=== PATIENT | female | born 1935 | race Caucasian/White ===

== ENCOUNTER 2018-01-11 07:33 | Emergency (ER) | payer OTHER, SELFPAY ==
[2018-01-11 09:26] LABS: Hematocrit 40.3 % (36.0-45.0); MCH 29.8 pg (27.0-35.0); MCV 88.7 fL (80-100); MPV 9.4 fL (7.6-11.3); RBC Red Blood Cell Count 4.54 M/uL (3.86-4.86)
[2018-01-11 09:32] LABS: Potassium 3.7 mEq/L (3.6-5.0)
[2018-01-11 09:35] LABS: Albumin 4.4 g/dL (3.2-5.5); Bilirubin Total 0.5 mg/dL (0.3-1.2); Protein, Total 7.5 g/dL (6.0-8.3)
--- NOTE | 2018-01-11 09:48 | EDPHYS ---
Physician Documentation [facility] Name: Amara Shipley Age: 82 yrs Sex: Female : 1935 Arrival Date: 01/11/2018 Time: 07:35 Bed 20 Private MD: ED Physician Omari Mac HPI: 01/11 08:57 This 82 yrs old Female presents to ER via Ambulatory with complaints of saira Insect Bite. 08:57 The patient presents to the emergency department with psychosis, has experienced visual saira hallucinations, seeing bugs. Onset: The symptoms/episode began/occurred 6 month(s) ago. Past psychiatric history: Prior diagnosis: no previous psychiatric diagnosis known. no hx, hx oa and ra. Associated signs and symptoms: Pertinent positives; delusions. Severity of symptoms: At their worst the symptoms were mild in the emergency department the symptoms are unchanged. The patient has experienced similar episodes in the past, a few times. Historical: - Allergies: 08:24 Celebrex; em 08:24 Codeine; em 08:24 Demerol; em - PMHx: 08:24 High Cholesterol; Hypertension; em - PSHx: 08:24 D \T\ C; Cholecystectomy; Hysterectomy; em - Immunization history:: Adult Immunizations up to date. - Social history:: Smoking status: Patient/guardian denies using tobacco. - Family history:: not pertinent. ROS: 08:57 Constitutional: Negative for fever, chills, and weight loss, Eyes: Negative for injury, saira pain, redness, and discharge, ENT: Negative for injury, pain, and discharge, Neck: Negative for injury, pain, and swelling, Cardiovascular: Negative for chest pain, palpitations, and edema, Respiratory: Negative for shortness of breath, cough, wheezing, and pleuritic chest pain, Abdomen/GI: Negative for abdominal pain, nausea, vomiting, diarrhea, and constipation, Back: Negative for injury and pain, : Negative for injury, bleeding, discharge, and swelling, MS/Extremity: Negative for injury and deformity, Neuro: Negative for headache, weakness, numbness, tingling, and seizure, Allergy/Immunology: Negative for hives, rash, and allergies, Endocrine: Negative for neck swelling, polydipsia, polyuria, polyphagia, and marked weight changes, Hematologic/Lymphatic: Negative for swollen nodes, abnormal bleeding, and unusual bruising. 08:57 Skin: Positive for small excoriated areas on back, upper. Exam: 08:57 Constitutional: This is a well developed, well nourished patient who is awake, alert, saira and in no acute distress. Head/Face: Normocephalic, atraumatic. Eyes: Pupils equal round and reactive to light, extra-ocular motions intact. Lids and lashes normal. Conjunctiva and sclera are non-icteric and not injected. Cornea within normal limits. Periorbital areas with no swelling, redness, or edema. ENT: Nares patent. No nasal discharge, no septal abnormalities noted. Tympanic membranes are normal and external auditory canals are clear. Oropharynx with no redness, swelling, or masses, exudates, or evidence of obstruction, uvula midline. Mucous membranes moist. Neck: Trachea midline, no thyromegaly or masses palpated, and no cervical lymphadenopathy. Supple, full range of motion without nuchal rigidity, or vertebral point tenderness. No Meningismus. Chest/axilla: Normal chest wall appearance and motion. Nontender with no deformity. No lesions are appreciated. Cardiovascular: Regular rate and rhythm with a normal S1 and S2. No gallops, murmurs, or rubs. Normal PMI, no JVD. No pulse deficits. Respiratory: Lungs have equal breath sounds bilaterally, clear to auscultation and percussion. No rales, rhonchi or wheezes noted. No increased work of breathing, no retractions or nasal flaring. Abdomen/GI: Soft, non-tender, with normal bowel sounds. No distension or tympany. No guarding or rebound. No evidence of tenderness throughout. Back: No spinal tenderness. No costovertebral tenderness. Full range of motion. Female : Normal external genitalia. Skin: Warm, dry with normal turgor. Normal color with no rashes, no lesions, and no evidence of cellulitis. MS/ Extremity: Pulses equal, no cyanosis. Neurovascular intact. Full, normal range of motion. Neuro: Awake and alert, GCS 15, oriented to person, place, time, and situation. Cranial nerves II-XII grossly intact. Motor strength 5/5 in all extremities. Sensory grossly intact. Cerebellar exam normal. Normal gait. Psych: Awake, alert, with orientation to person, place and time. Behavior, mood, and affect are within normal limits. 08:57 Psych: Behavior/mood is pleasant, cooperative, Affect is calm, Oriented to person, place, time, Patient has no thoughts/intents to harm self or others. Judgement / Insight is normal. Memory is normal. Delusions/hallucinations are present and described as see bugs on skin. Vital Signs: 08:22 BP 202 / 106; Pulse 102; Resp 18; Temp 98.7; Pulse Ox 100% on R/A; Weight 58.97 kg; em Height 5 ft. 1 in. (154.94 cm); Pain 0/10; 10:39 BP 189 / 95; Pulse 95; Resp 18; Pulse Ox 100% on R/A; hj 08:22 Body Mass Index 24.56 (58.97 kg, 154.94 cm) em MDM: 08:08 Patient medically screened. [facility] 01/11 08:56 Order name: CBC w/o diff; Complete Time: 09:48 [facility] 01/11 08:56 Order name: Comprehensive Metabolic Panel; Complete Time: 09:48 [facility] 01/11 08:55 Order name: Diet Regular; Complete Time: 08:56 [facility] 01/11 08:56 Order name: Urine Dipstick-Ancillary (obtain specimen); Complete Time: 09:18 [facility] 01/11 08:56 Order name: Urine Culture [facility] 01/11 09:14 Order name: Urine Dipstick--Ancillary (enter results) ag Administered Medications: No medications were administered Disposition: 01/11/18 09:48 Discharged to Home. Impression: Puerperal psychosis, Essential (primary) hypertension. - Condition is Stable. - Discharge Instructions: Hypertension, Hypertension, [id number], How to Take Your Blood Pressure, Wctf-rb-[id number], Psychosis, Managing Your High Blood Pressure. - Prescriptions for Claritin 10 mg Oral Tablet - take 1 tablet by ORAL route once daily As needed; 30 tablet. - Medication Reconciliation Form, Thank You Letter, Antibiotic Education, Prescription Opioid Use form. - Follow up: Private Physician; When: 2 - 3 days; Reason: Recheck today's complaints, Continuance of care, Re-evaluation by your physician. - Problem is new. - Symptoms have improved. Signatures: Dispatcher [employer] Omari Estrada MD MD cha Munoz, Edgar, MERCHANDISE STOCKER MERCHANDISE STOCKER Mike Corrales RN RN hj Corrections: (The following items were deleted from the chart) 10:39 09:48 01/11/2018 09:48 Discharged to Home. Impression: Puerperal psychosis; Essential hj (primary) hypertension. Condition is Stable. Discharge Instructions: Hypertension, Hypertension, [id number], How to Take Your Blood Pressure, [id number]-yy-[id number], Psychosis, Managing Your High Blood Pressure. Prescriptions for Claritin 10 mg Oral Tablet - take 1 tablet by ORAL route once daily As needed; 30 tablet. and Forms are Medication Reconciliation Form, Thank You Letter, Antibiotic Education, Prescription Opioid Use. Follow up: Private Physician; When: 2 - 3 days; Reason: Recheck today's complaints, Continuance of care, Re-evaluation by your physician. Problem is new. Symptoms have improved. saira
--- NOTE | 2018-01-11 09:48 | ER ---
Nurse's Notes [facility] Name: Amara Shipley Age: 82 yrs Sex: Female : 1935 Arrival Date: 01/11/2018 Time: 07:35 Bed 20 Private MD: Diagnosis: Puerperal psychosis;Essential (primary) hypertension Presentation: 01/11 08:19 Presenting complaint: Patient states: having tiny bugs that need a magnifying glass to em see biting pt for several weeks, apt complex is aware of bug problem but have not notified her of any identifiable insect, denies bed bugs, fleas, ticks, lice. Transition of care: patient was not received from another setting of care. Onset of symptoms was January 11, 2018. Initial Sepsis Screen: Does the patient meet any 2 criteria? No. Patient's initial sepsis screen is negative. Does the patient have a suspected source of infection? No. Patient's initial sepsis screen is negative. Care prior to arrival: None. 08:19 Method Of Arrival: Ambulatory em 08:19 Acuity: MAIDA 4 hj Triage Assessment: 08:32 Bite description: bite by. hj 08:33 Bite description: bite sustained to all over body animal information: vaccination(s) is hj not applicable. Historical: - Allergies: 08:24 Celebrex; em 08:24 Codeine; em 08:24 Demerol; em - PMHx: 08:24 High Cholesterol; Hypertension; em - PSHx: 08:24 D \T\ C; Cholecystectomy; Hysterectomy; em - Immunization history:: Adult Immunizations up to date. - Social history:: Smoking status: Patient/guardian denies using tobacco. - Family history:: not pertinent. Screenin:26 Abuse screen: Denies threats or abuse. Nutritional screening: No deficits noted. em Tuberculosis screening: No symptoms or risk factors identified. Fall Risk None identified. Assessment: 08:24 General: Appears in no apparent distress. uncomfortable, Behavior is calm, cooperative. em Pain: Denies pain. Neuro: Level of Consciousness is awake, alert, obeys commands, Oriented to person, place, time, situation. Cardiovascular: Capillary refill < 3 seconds Patient's skin is warm and dry. Respiratory: Airway is patent Respiratory effort is even, unlabored, Respiratory pattern is regular, symmetrical. GI: Abdomen is flat. : No signs and/or symptoms were reported regarding the genitourinary system. EENT: No signs and/or symptoms were reported regarding the EENT system. Derm: Skin ballpoint pen size healing scabs noted around back area. Musculoskeletal: Range of motion: intact in all extremities. 08:27 Derm: Skin is pink, warm \T\ dry. em 08:30 Reassessment: Patient appears in no apparent distress at this time. I agree with above iw assessment by Juan Aaron LVN. Vital Signs: 08:22 BP 202 / 106; Pulse 102; Resp 18; Temp 98.7; Pulse Ox 100% on R/A; Weight 58.97 kg; em Height 5 ft. 1 in. (154.94 cm); Pain 0/10; 10:39 BP 189 / 95; Pulse 95; Resp 18; Pulse Ox 100% on R/A; hj 08:22 Body Mass Index 24.56 (58.97 kg, 154.94 cm) em ED Course: 07:35 Patient arrived in ED. rg4 08:05 Juan Aaron LVN is Primary Nurse. em 08:08 Omari Mac MD is Attending Physician. [facility] 08:26 Arm band placed on. em 08:26 Patient has correct armband on for positive identification. Bed in low position. Call em light in reach. 08:26 No provider procedures requiring assistance completed. em 08:32 Triage completed. hj 09:18 Initial lab(s) drawn, by ga, sent to lab. Inserted saline lock: 20 gauge in right em antecubital area, using aseptic technique. Blood collected. 10:39 IV discontinued, intact, bleeding controlled, No redness/swelling at site. Pressure hj dressing applied. Administered Medications: No medications were administered Outcome: 09:48 Discharge ordered by . saira 10:38 Discharged to home ambulatory, with walker hj 10:38 Condition: stable 10:38 Discharge instructions given to patient, family, Instructed on discharge instructions, follow up and referral plans. medication usage, Demonstrated understanding of instructions, follow-up care, medications, Prescriptions given X 1. 10:39 Patient left the ED. Signatures: Donald Nelson RN RN Omari Mac MD MD cha Munoz, Edgar, LVN LVN Megan Prince RN RN Mike Glaser RN RN hj Garcia, Rubi rg4
[2018-01-11 09:56] LABS: Urine Blood NEGATIVE (NEG); Urine Glucose NEGATIVE (NEG); Urine Protein NEGATIVE (NEG); Urine Specific Gravity 1.025 (1.005-1.030); Urine pH 5.5 (5.0-7.0)
== END 2018-01-11 10:39 | disposition home or self-care (01) ==
LOC: ER 07:33
DX: F28 Other psychotic disorder not due to a substance or known physiological condition (principal); I10 Essential (primary) hypertension; Z88.5 Allergy status to narcotic agent; Z88.6 Allergy status to analgesic agent; Z88.8 Allergy status to other drugs, medicaments and biological substances
CPT/HCPCS: 36415; 80053; 81003; 85027; 87077; 87086; 87088; 87186; 99283

== ENCOUNTER 2019-09-24 14:28 | Inpatient (IN) | payer OTHER ==
--- OUTSIDE RECORDS SUMMARY | 2019-09-24 14:30 | XMS REPORT ---
:1935 [facility] Address [address] [place] [address] Care Team Providers Name Role Phone Unavailable Unavailable Unavailable Problems This patient has no known problems. Allergies, Adverse Reactions, Alerts This patient has no known allergies or adverse reactions. Medications This patient has no known medications.
--- OUTSIDE RECORDS SUMMARY | 2019-09-24 14:30 | XMS REPORT ---
:1935 Author Organization [employer] Care Team Providers Name Role Phone Cardoza, Na Provider Role Unavailable Allergies No Known Allergies Problems Problem Type Condition Code Onset Dates Condition Status Problem Bladder problem N32.9 Active Problem Sciatica of left side M54.32 Active Problem Sciatica, right side M54.31 Active Problem 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 disorder, unspecified whether recurrent Problem Dementia without behavioral F03.90 Active disturbance, unspecified dementia type Problem Memory problem R41.3 Active Problem Reflux K21.9 Active Problem Mixed stress and urge urinary N39.46 Active incontinence Problem Seasonal allergies J30.2 Active Problem Macular degeneration of both eyes, H35.30 Active unspecified type Problem 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 Active Problem Depression with anxiety F41.8 Active Problem Pain in right hip M25.551 Active Problem Osteoarthritis, unspecified M19.90 Active osteoarthritis type, unspecified site Problem Rheumatoid arthritis involving M06.9 Active multiple sites, unspecified rheumatoid factor presence Problem Rash and nonspecific skin eruption R21 Active Problem Gastroesophageal reflux disease, K21.9 Active esophagitis presence not specified Problem At risk for falling Z91.81 Active Problem Insomnia, unspecified type G47.00 Active Problem Pain in left hip M25.552 Active Problem Hoarseness of voice R49.0 Active Problem Sinus problem J34.9 Active Problem Irritable bowel K58.9 Active Problem Irritable bowel syndrome with K58.0 Active diarrhea Problem Kidney disease N28.9 Active Problem Allergic rhinitis J30.9 Active Problem Essential hypertension I10 Active Problem Fibromyalgia M79.7 Active Problem Anxiety F41.9 Active Medications No Known Medications Results No Known Results Summary Purpose [employer] Submission
--- OUTSIDE RECORDS SUMMARY | 2019-09-24 14:31 | XMS REPORT ---
:1935 [facility] Team Providers Name Role Phone Myrtle Cavanaugh Provider Role Unavailable Allergies, Adverse Reactions, Alerts Substance Reaction Event Type Demerol Info Not Available Drug Allergy Celebrex Info Not Available Drug Allergy Problems Problem Type Condition Code Onset Dates Condition Status Assessment Cough R05 Active Assessment Mild reactive airways disease, J45.909 Active unspecified whether persistent Problem Bladder problem N32.9 Active Problem Sciatica [...] M79.7 Active Problem Anxiety F41.9 Active Medications Medication Code Code Instructions Start End Status Dosage System Date Date Ventolin HFA [facility] [id number] 108 (90 Base) Sep 04, Active 2 puffs as MCG/ACT 2020 needed for Inhalation cough/wheez every 6 hrs ing Hydroxychloroquine [facility] 57213299218 200 MG Orally Active 1 tablet Sulfate Once a day with food or milk PredniSONE ND 70075296647 5 MG Orally Active 1 tablet Once a day Cetirizine HCl [facility] 60509650709 10 MG Orally March Active 1 tablet Once a day 2018 Duloxetine HCl [facility] 68667879689 60 MG Orally Active 1 capsule Once daily in (take with am duloxetine 30 mg) Gabapentin [facility] 55907475180 100 MG Orally Active 1 capsule Three times a day Probiotic Digestive [facility] 75296865746 - Orally Active as directed Support Leflunomide [facility] 61814224566 20 MG Orally Active 1 tablet Once a day Propranolol HCl [facility] 39040345198 20 MG Orally Active 1 tablet on Once a day an empty stomach Dicyclomine HCl [facility] 55259115557 20 MG Orally Active 1 tablet Four times a day Omeprazole [facility] 52640933183 40 MG Orally Active 1 capsule Once a day Duloxetine HCl [facility] 89056698282 30 MG Orally Jun 29, Active 1 capsule Once a day in 2018 (take with am duloxetine 60 mg) Trazodone HCl [facility] 63937027800 50 MG Orally Active 1 tablet at Once a day bedtime as needed Galantamine [facility] 07376061988 4 MG Orally Active 1 tablet Hydrobromide Twice a day with meals Results No Known Results Summary Purpose [employer] Submission
[2019-09-24] MEDS ORDERED: LEVALBUTEROL 1.25 MG/3 ML NEB ONE (14:47)
[2019-09-24] MEDS ORDERED: NA CHLORIDE 0.9% 2,000 ML ONE (14:47)
[2019-09-24] MEDS ORDERED: BENZONATATE 100 MG CAP PO ONE (14:47)
[2019-09-24 15:11] LABS: Absolute Lymphocytes (CBC) 0.3 K/uL (0.7-4.9); Basophils % 0.6 % (0-1.3); Hematocrit 37.2 % (36.0-45.0); Lymphocytes % 4.5 % (15.3-44.8); MPV 8.7 fL (7.6-11.3); RBC Red Blood Cell Count 4.26 M/uL (3.86-4.86)
[2019-09-24 15:14] LABS: Protime INR 1.03
--- NOTE | 2019-09-24 15:21 | RAD REPORT ---
EXAM DESCRIPTION: RAD - Chest Single View - 09/24/2019 2:57 pm CLINICAL HISTORY: COUGH Chest pain. COMPARISON: Chest Pa And Lat (2 Views) dated 06/29/2019; Chest Pa And Lat (2 Views) dated 03/26/2018 FINDINGS: Portable technique limits examination quality. The left lung base appears hazy which may represent a mild infiltrate/ pneumonia. Elsewhere, the lung s appear grossly clear. The heart is normal in size. No displaced fractures.Cervical hardware plate i s present.
[2019-09-24 15:29] LABS: ALT/SGPT 23 U/L (12-78); AST/SGOT 29 U/L (15-37); Albumin 3.7 g/dL (3.4-5.0); Alkaline Phosphatase 55 U/L (45-117); BUN Blood Urea Nitrogen 12 mg/dL (7-18); Bicarbonate 27 mmol/L (21-32); Bilirubin Direct < 0.1 mg/dL (0-0.2); Bilirubin Total 0.3 mg/dL (0.2-1.0); CKMB Creatine Kinase MB < 1.0 ng/mL (0.3-3.6); Creatine Phosphokinase 108 U/L (26-192); Glucose Level 83 mg/dL (74-106); Lipase 70 U/L (73-393); Potassium 4.5 mmol/L (3.5-5.1); Protein, Total 7.5 g/dL (6.4-8.2); Sodium Level 136 mmol/L (136-145); Troponin (Emerg Dept Use Only) < 0.02 ng/mL (0.0-0.045)
[2019-09-24 15:40] LABS: Blood Morphology Comment NOT SEEN (NOT SEEN); Platelet Estimate ADEQ
[2019-09-24] MEDS ORDERED: CEFTRIAXONE/SWI 1gm 1 GM/10 ML SYR ONE (15:48)
[2019-09-24] MEDS ORDERED: OSELTAMIVIR 75 MG CAP ONE (15:48)
--- NOTE | 2019-09-24 15:59 | ER ---
Nurse's Notes [facility] Name: Amara Shipley Age: 84 yrs Sex: Female : 1935 Arrival Date: 09/24/2019 Time: 14:31 Bed 2 Private MD: Diagnosis: Pneumonia due to other specified bacteria;Influenza due to identified novel influenza A virus Presentation: 09/24 14:31 Presenting complaint: EMS states: Sent from [facility] for hb cough, fever, SOB, body aches x 3 days. TMAX 101. Transition of care: patient was not received from another setting of care. Onset of symptoms was September 21, 2019. Risk Assessment: Do you want to hurt yourself or someone else? Patient reports no desire to harm self or others. Care prior to arrival: Medication(s) given: Tylenol, 1000 mg. 14:31 Method Of Arrival: EMS: [facility] hb 14:31 Acuity: MAIDA 2 hb 14:32 Initial Sepsis Screen: Does the patient meet any 2 criteria? RR > 20 per min. Temp hb <36.0*C (96.8*F)) or > 38.3*C (100.9*F). HR > 90 bpm. Yes Does the patient have a suspected source of infection? Yes: Productive cough/pneumonia. Historical: - Allergies: 14:34 Celebrex; hb 14:34 Codeine; hb 14:34 Demerol; hb - Home Meds: 15:09 trazodone 50 mg Oral tab nightly [Active]; duloxetine 60 mg oral cpDR 1 cap once daily hb [Active]; omeprazole 40 mg Oral cpDR 1 cap once daily [Active]; gabapentin 100 mg oral cap 1 caps 3 times per day [Active]; hydroxychloroquine 200 mg oral tab 1 tab once daily [Active]; galantamine 4 mg oral tab 1 tab 2 times per day [Active]; Probiotic Complex oral oral [Active]; dicyclomine 20 mg Oral tab 1 tab 4 times per day [Active]; cetirizine 10 mg oral chew 1 tab once daily [Active]; prednisone 5 mg Oral tab once daily [Active]; leflunomide 20 mg oral tab 1 tab once daily [Active]; propranolol 20 mg Oral tab daily [Active]; - PMHx: 14:34 High Cholesterol; Hypertension; hb 15:09 Rheumatic arthritis; Dementia; GERD; Anxiety; IBS; CKD; hb - PSHx: 14:34 D \T\ C; Cholecystectomy; Hysterectomy; hb 15:09 Wrist - Left; Foot - Right; Throat - metal; hb - Immunization history:: Adult Immunizations up to date. - Social history:: Smoking status: Patient denies any tobacco usage or history of. - Ebola Screening: : No symptoms or risks identified at this time. Screenin:32 Abuse screen: Denies threats or abuse. Denies injuries from another. Nutritional hb screening: No deficits noted. Tuberculosis screening: No symptoms or risk factors identified. Fall Risk None identified. Assessment: 14:32 Reassessment: CODE SEPSIS CALLED. hb 14:35 General: Appears in no apparent distress. ill, Behavior is calm, cooperative. Pain: hb Pain currently is 9 out of 10 on a pain scale. Neuro: Level of Consciousness is awake, alert, obeys commands, Oriented to person, place, situation. Cardiovascular: Heart tones S1 S2 present Capillary refill < 3 seconds Patient's skin is warm and dry. Respiratory: Airway is patent Trachea midline Respiratory effort is even, mildly labored Respiratory pattern is tachypnea Breath sounds with rhonchi bilaterally. GI: No signs and/or symptoms were reported involving the gastrointestinal system. : No signs and/or symptoms were reported regarding the genitourinary system. EENT: Reports sore throat. Derm: Skin is pink, warm \T\ dry. Musculoskeletal: Reports body aches. 16:07 Reassessment: IV infiltrated, d/c and applied pressure dressing. em 16:48 Reassessment: Patient appears in no apparent distress at this time. Patient and/or hb family updated on plan of care and expected duration. Pain level reassessed. Patient is alert, oriented x 3, equal unlabored respirations, skin warm/dry/pink. Admission ordered, awaiting room assignment at this time. Family remains at bedside. 17:21 Reassessment: Patient appears in no apparent distress at this time. Patient and/or hb family updated on plan of care and expected duration. Pain level reassessed. Patient is alert, oriented x 3, equal unlabored respirations, skin warm/dry/pink. 18:07 Reassessment: Attempted to call report to floor, receiving nurse unavailable at this hb time. 18:28 Reassessment: Patient appears in no apparent distress at this time. Patient and/or hb family updated on plan of care and expected duration. Pain level reassessed. Patient is alert, oriented x 3, equal unlabored respirations, skin warm/dry/pink. 19:14 Reassessment: Attempted to call report floor, receiving nurse unavailable. hb 19:30 Reassessment: report given to Alan RUBY. jd3 Vital Signs: 14:32 BP 138 / 78; Pulse 112; Resp 23; Temp 101; Pulse Ox 95% on R/A; Weight 65.77 kg; Height hb 5 ft. 4 in. (162.56 cm); Pain 9/10; 15:15 BP 99 / 54; Pulse 120; Resp 22; Pulse Ox 96% on R/A; hb 16:00 BP 101 / 75; Pulse 109; Resp 24; Temp 99.2; Pulse Ox 100% ; hb 16:26 BP 105 / 53; Pulse 107; Resp 22; Pulse Ox 99% on R/A; em 17:21 BP 117 / 51; Pulse 108; Resp 20; Pulse Ox 97% on R/A; hb 18:29 BP 115 / 56; Pulse 102; Resp 21; Pulse Ox 95% on R/A; hb 14:32 Body Mass Index 24.89 (65.77 kg, 162.56 cm) hb ED Course: 14:31 Patient arrived in ED. hb 14:32 Triage completed. hb 14:34 Arm band placed on. hb 14:35 Patient has correct armband on for positive identification. Bed in low position. Call light in reach. Side rails up X 1. nuclear monitoring technician on. Pulse ox on. NIBP on. 14:38 Omari Fitzpatrick PA is PHCP. cp 14:38 Hector Gan MD is Attending Physician. cp 14:40 Initial lab(s) drawn, by or, sent to lab. First set of blood cultures drawn. hb 14:41 Janene Vizciano, FLORI is Primary Nurse. hb 14:42 Inserted saline lock: 20 gauge in right antecubital area, using aseptic technique. hb Blood collected. 14:43 Flu Sent. dh3 14:55 EKG done, by biofuels production technician. reviewed by Omari TRIANA. at1 14:56 Chest Single View XRAY In Process Unspecified. EDMS 15:58 Danielle Anderson MD is Hospitalizing Provider. cp 16:20 Inserted saline lock: 20 gauge in left antecubital area, using aseptic technique. em 20:00 No provider procedures requiring assistance completed. Patient admitted, IV remains in jd3 place. intact, bleeding controlled, No redness/swelling at site. Pressure dressing applied. Administered Medications: 14:52 Drug: Tessalon Perle 200 mg Route: PO; hb 15:37 Follow up: Response: No adverse reaction hb 14:52 Drug: Xopenex (3) 1.25 mg Route: Inhalation; hb 15:40 Follow up: Response: No adverse reaction hb 14:53 Drug: NS 0.9% (30 ml/kg) 30 ml/kg Route: IV; Rate: bolus; Site: right antecubital; hb 15:45 Follow up: Response: No adverse reaction; IV Status: Completed infusion; IV Intake: hb 2000ml 15:01 Not Given (ADMINISTERED COAL CAGER BY EMS): Tylenol 1000 mg PO once hb 15:32 Drug: Rocephin - (cefTRIAXone) 1 grams Route: IVPB; Infused Over: 30 mins; Site: right hb antecubital; 16:15 Follow up: Response: No adverse reaction; IV Status: Completed infusion hb 15:50 Drug: Tamiflu 75 mg Route: PO; hb 16:40 Follow up: Response: No adverse reaction hb 16:20 Drug: Zithromax 500 mg Route: IVPB; Infused Over: 1 hrs; Site: left antecubital; em 17:44 Follow up: Response: No adverse reaction; IV Status: Completed infusion; IV Intake: hb 250ml Intake: 15:45 IV: 2000ml; Total: 2000ml. hb 17:44 IV: 250ml; Total: 2250ml. hb Outcome: 15:58 Decision to Hospitalize by Provider. cp 20:00 Admitted to Med/surg accompanied by tech, via stretcher, room 431, with chart, Report jd3 called to Alan RUBY 20:00 Condition: stable 20:00 Instructed on the need for admit, Demonstrated understanding of instructions. 20:04 Patient left the ED. jd3 Signatures: Dispatcher [employer] EDOK Juan Aaron RN RN em Alexsandra Chase, final block press operator EKG Tat1 Omari Fitzpatrick PA PA cp Baxter, Heather, RN RN Guillermina Alcala 3 Fawad Lipscomb RN RN jd3 Corrections: (The following items were deleted from the chart) 15: 14:31 Care prior to arrival: None. hb hb
[2019-09-24] MEDS ORDERED: AZITHROMYCIN IV 500 MG in NA CHLORIDE 0.9% 250 ML IVPB ONE (16:00)
--- NOTE | 2019-09-24 16:00 | EDPHYS ---
Physician Documentation [facility] Name: Amara Shipley Age: 84 yrs Sex: Female : 1935 Arrival Date: 09/24/2019 Time: 14:31 Bed 2 Private MD: ED Physician Hector Gan HPI: 09/24 14:45 This 84 yrs old Female presents to ER via EMS with complaints of Fever, Cough.cp 14:45 The patient reports fever, with an emergency department temperature of 101 degrees cp Fahrenheit. 14:45 Onset: The symptoms/episode began/occurred 3 day(s) ago. Associated signs and symptoms: cp Pertinent positives: cough, body aches. Severity of symptoms: in the emergency department the symptoms are unchanged. The patient has been recently seen by a physician: in the office, earlier today, with similar presenting complaints, and was sent to the [facility] Emergency Department for further evaluation. Historical: - Allergies: 14:34 Celebrex; hb 14:34 Codeine; hb 14:34 Demerol; hb - Home Meds: 15:09 trazodone 50 mg Oral tab nightly [Active]; duloxetine 60 mg oral cpDR 1 cap once daily hb [Active]; omeprazole 40 mg Oral cpDR 1 cap once daily [Active]; gabapentin 100 mg oral cap 1 caps 3 times per day [Active]; hydroxychloroquine 200 mg oral tab 1 tab once daily [Active]; galantamine 4 mg oral tab 1 tab 2 times per day [Active]; Probiotic Complex oral oral [Active]; dicyclomine 20 mg Oral tab 1 tab 4 times per day [Active]; cetirizine 10 mg oral chew 1 tab once daily [Active]; prednisone 5 mg Oral tab once daily [Active]; leflunomide 20 mg oral tab 1 tab once daily [Active]; propranolol 20 mg Oral tab daily [Active]; - PMHx: 14:34 High Cholesterol; Hypertension; hb 15:09 Rheumatic arthritis; Dementia; GERD; Anxiety; IBS; CKD; hb - PSHx: 14:34 D \\T\\ C; Cholecystectomy; Hysterectomy; hb 15:09 Wrist - Left; Foot - Right; Throat - metal; hb - Immunization history:: Adult Immunizations up to date. - Social history:: Smoking status: Patient denies any tobacco usage or history of. - Ebola Screening: : No symptoms or risks identified at this time. ROS: 14:50 Constitutional: Positive for chills, fever, Negative for poor PO intake. cp 14:50 Eyes: Negative for injury, pain, redness, and discharge. cp 14:50 ENT: Negative for drainage from ear(s), ear pain, sore throat, difficulty swallowing, difficulty handling secretions. 14:50 Neck: Negative for pain with movement, pain at rest, stiffness. 14:50 Cardiovascular: Negative for chest pain. 14:50 Respiratory: Positive for cough, "sounds productive". 14:50 Abdomen/GI: Negative for abdominal pain, vomiting, diarrhea, constipation. 14:50 Skin: Negative for rash. 14:50 Neuro: Negative for altered mental status, headache. 14:50 All other systems are negative. Exam: 14:55 Constitutional: The patient appears in no acute distress, alert, awake, cp non-diaphoretic, non-toxic, well developed, well nourished. 14:55 Head/Face: Normocephalic, atraumatic. cp 14:55 Eyes: Periorbital structures: appear normal, Conjunctiva: normal, no exudate, no injection, Sclera: no appreciated abnormality, Lids and lashes: appear normal, bilaterally. 14:55 ENT: External ear(s): are unremarkable, Nose: is normal, Mouth: Lips: moist, Oral mucosa: pink and intact, moist, Posterior pharynx: is normal, airway is patent, no erythema, no exudate. 14:55 Chest/axilla: Inspection: normal, Palpation: is normal, no crepitus, no tenderness. 14:55 Cardiovascular: Rate: tachycardic, Rhythm: regular, Edema: is not appreciated, JVD: is not appreciated. 14:55 Respiratory: the patient does not display signs of respiratory distress, Respirations: labored breathing, that is mild, intercostal retractions, are absent, Breath sounds: bronchial sounds, that are mild, are heard diffusely, stridor, is not appreciated, + upper airway congestion. 14:55 Abdomen/GI: Inspection: abdomen appears normal, Palpation: abdomen is soft and non-tender, in all quadrants. 14:55 Skin: no rash present. 14:55 Neuro: Orientation: to person, place \\T\\ time. Mentation: is normal, Cerebellar function: is grossly normal, Motor: moves all fours, strength is normal. Vital Signs: 14:32 BP 138 / 78; Pulse 112; Resp 23; Temp 101; Pulse Ox 95% on R/A; Weight 65.77 kg; Height hb 5 ft. 4 in. (162.56 cm); Pain 9/10; 15:15 BP 99 / 54; Pulse 120; Resp 22; Pulse Ox 96% on R/A; hb 16:00 BP 101 / 75; Pulse 109; Resp 24; Temp 99.2; Pulse Ox 100% ; hb 16:26 BP 105 / 53; Pulse 107; Resp 22; Pulse Ox 99% on R/A; em 17:21 BP 117 / 51; Pulse 108; Resp 20; Pulse Ox 97% on R/A; hb 18:29 BP 115 / 56; Pulse 102; Resp 21; Pulse Ox 95% on R/A; hb 14:32 Body Mass Index 24.89 (65.77 kg, 162.56 cm) hb MDM: 14:40 Patient medically screened. cp 15:00 Differential diagnosis: bronchitis, pneumonia meningitis, influenza, sepsis. Test cp interpretation: by ED physician or midlevel provider: ECG. 15:45 Physician consultation: Danielle Anderson MD was called at 15:45, was contacted at 15:45, cp regarding admission, to the telemetry unit. patient's condition. 15:45 Data reviewed: vital signs, nurses notes, lab test result(s), radiologic studies, plain cp films, I have discussed the patient's presentation/case with the attending Emergency Department Physician; and as a result, I will admit patient. 09/24 14:33 Order name: Basic Metabolic Panel hb 09/24 14:33 Order name: Blood Culture Adult (2) hb 09/24 14:33 Order name: CBC with Diff; Complete Time: 15:49 hb 09/24 15:31 Interpretation: Normal except: LYM% 4.5; MN% 24.2; LYMA 0.3; MNA 1.7. cp 09/24 14:33 Order name: Ckmb; Complete Time: 15:31 hb 09/24 14:33 Order name: CPK; Complete Time: 15:31 hb 09/24 14:33 Order name: Lactate; Complete Time: 15:30 hb 09/24 15:59 Interpretation: Within normal limits. cp 09/24 14:33 Order name: LFT's; Complete Time: 15:31 hb 09/24 14:33 Order name: Lipase; Complete Time: 15:31 hb 09/24 14:33 Order name: Procalcitonin; Complete Time: 15:59 hb 09/24 15:59 Interpretation: Within normal limits. cp 09/24 14:33 Order name: Protime (+inr); Complete Time: 15:30 hb 09/24 14:33 Order name: Ptt, Activated; Complete Time: 15:30 hb 09/24 14:33 Order name: Troponin (emerg Dept Use Only); Complete Time: 15:31 09/24 15:59 Interpretation: Reviewed. 09/24 14:33 Order name: Urine Microscopic Only 09/24 14:34 Order name: Basic Metabolic Panel; Complete Time: 15:31 EDNM 09/24 14:33 Order name: Chest Single View XRAY; Complete Time: 15:30 09/24 14:33 Order name: Accucheck; Complete Time: 14:53 09/24 14:33 Order name: Cardiac monitoring; Complete Time: 14:37 09/24 14:33 Order name: EKG - Nurse/Tech; Complete Time: 14:53 09/24 14:33 Order name: IV Saline Lock - Large Bore; Complete Time: 14:42 09/24 14:34 Order name: Flu; Complete Time: 15:30 09/24 15:30 Interpretation: FLUA FLU A ----- \\T\\nbsp; \\T\\nbsp; \\T\\nbsp; \\T\\nbsp; \\T\\nbsp; \\T\\nbsp; \\T\\nbsp ; cp \\T\\nbsp; \\T\\nbsp; POSITIVE for FLU A protein antigen; Reviewed. 09/24 15:40 Order name: Manual Differential; Complete Time: 15:49 EDNM 09/24 18:13 Order name: Urine Dipstick--Ancillary (enter results) em1 09/24 18:50 Order name: Urine Dipstick-Ancillary EDNM 09/24 14:33 Order name: Labs collected and sent; Complete Time: 14:42 09/24 14:33 Order name: O2 Per Protocol; Complete Time: 14:37 hb 09/24 14:33 Order name: O2 Sat Monitoring; Complete Time: 14:37 hb 09/24 14:33 Order name: Urine Dipstick-Ancillary (obtain specimen); Complete Time: 18:28 hb Administered Medications: 14:52 Drug: Tessalon Perle 200 mg Route: PO; hb 15:37 Follow up: Response: No adverse reaction hb 14:52 Drug: Xopenex (3) 1.25 mg Route: Inhalation; hb 15:40 Follow up: Response: No adverse reaction hb 14:53 Drug: NS 0.9% (30 ml/kg) 30 ml/kg Route: IV; Rate: bolus; Site: right antecubital; hb 15:45 Follow up: Response: No adverse reaction; IV Status: Completed infusion; IV Intake: hb 2000ml 15:01 Not Given (ADMINISTERED SUPPLEMENTAL NURSE BY EMS): Tylenol 1000 mg PO once hb 15:32 Drug: Rocephin - (cefTRIAXone) 1 grams Route: IVPB; Infused Over: 30 mins; Site: right hb antecubital; 16:15 Follow up: Response: No adverse reaction; IV Status: Completed infusion hb 15:50 Drug: Tamiflu 75 mg Route: PO; hb 16:40 Follow up: Response: No adverse reaction hb 16:20 Drug: Zithromax 500 mg Route: IVPB; Infused Over: 1 hrs; Site: left antecubital; em 17:44 Follow up: Response: No adverse reaction; IV Status: Completed infusion; IV Intake: hb 250ml Disposition: 09/24/19 15:58 Hospitalization ordered by Danielle Anderson for Inpatient Admission. Preliminary diagnosis are Pneumonia due to other specified bacteria, Influenza due to identified novel influenza A virus. - Bed requested for Telemetry/MedSurg (Inpatient). - Status is Inpatient Admission. jd3 - Condition is Stable. - Problem is new. - Symptoms have improved. UTI on Admission? No Addendum: 09/26/2019 19:46 Co-signature as Attending Physician, Hector Gan MD. r n Signatures: Dispatcher [employer] Juan Chavis RN RN em Hector Gan MD MD rn Page, Corey, PA PA cp Baxter, Heather, RN RN Fawad Lipscomb RN RN jd3 Bui, Chi, RN RN ja1 Corrections: (The following items were deleted from the chart) 09/24 15:31 15:30 Normal except: LYM% 4.5; MN% 24.2. cp cp 17:46 15:58 Hospitalization Ordered by Danielle Anderson MD for Inpatient Admission. Preliminary ja1 diagnosis is Pneumonia due to other specified bacteria; Influenza due to identified novel influenza A virus. Bed requested for Telemetry/MedSurg (Inpatient). Status is Inpatient Admission. Condition is Stable. Problem is new. Symptoms have improved. UTI on Admission? No. cp 20:04 17:46 09/24/2019 15:58 Hospitalization Ordered by Danielle Anderson MD for Inpatient jd3 Admission. Preliminary diagnosis is Pneumonia due to other specified bacteria; Influenza due to identified novel influenza A virus. Bed requested for Telemetry/MedSurg (Inpatient). Status is Inpatient Admission. Condition is Stable. Problem is new. Symptoms have improved. UTI on Admission? No. ja1 09/25 15:58 15:57 Constitutional: Positive for cp cp
[2019-09-24 18:50] LABS: Urine Blood NEGATIVE (NEG); Urine Glucose NEGATIVE (NEG); Urine Protein NEGATIVE (NEG); Urine Specific Gravity 1.015 (1.005-1.030); Urine pH 6.5 (5.0-7.0)
[2019-09-24 18:50] LABS: Urine Bacteria <20 /HPF (<20); Urine Culture Reflex Order NOT NEEDED; Urine RBC <5 /HPF (NONE SEEN)
[2019-09-24 20:55] VITALS: BMI 27.0
[2019-09-24] MEDS ORDERED: OSELTAMIVIR 75 MG CAP PO ONE (21:18)
[2019-09-24] MEDS ORDERED: NA CHLORIDE 0.9% 500 ML IV ONE (21:18)
[2019-09-24] MEDS ORDERED: SODIUM CHL 0.9% 1000 ML BAG IV ONE (21:18)
--- NOTE | 2019-09-24 21:56 | HP ---
Date of Admission: 09/24/2019 Primary Care Physician: Dr. Martinez. Code Status: Full. Chief Complaint: Cough, congestion, and generalized weakness. History Of Present Illness: Patient is an 84-year-old female with past medical history of hypertensi on, hyperlipidemia, depression, GERD, neuropathy. Patient comes in with 1 week of generalized weakne ss. Patient also reports some cough, congestion with sputum production. Denies any ill contacts. T he patient's symptoms are constant, moderate, progressively worsening. Patient came into the ER for further evaluation, she was found to be tachycardic, febrile 101. She was flu A positive. Her chest x-ray showed left lower lobe infiltrate. Patient was then referred for admission. She was found to be septic. She was started on sepsis guidelines. When seen in the ER, she was awake, alert, having a significant amount of cough. Past Medical History: Hypertension, hyperlipidemia, rheumatoid arthritis, dementia, GERD, generalize d anxiety, IBS, chronic kidney disease. Past Surgical History: Cholecystectomy, hysterectomy, surgeries on the neck, left wrist, and right f oot. Allergies: TO CELEBREX, CODEINE, AND DEMEROL. Medications: List reviewed. Social History: Patient denies any tobacco use, alcohol use, or illicit drug use. Family History: Breast cancer runs in the family. Review of Systems: An 11-point system reviewed, negative except as per HPI. Physical Examination: Vital Signs: Blood pressure 138/78, pulse 112, respirations 23, temperature 101, O2 95% on room air. Blood pressure did drop to 99/54, BMI 24.89. General: Awake, alert, and oriented x3. Elderly female, ill-appearing, in acute respiratory distres s. HEENT: Normocephalic, atraumatic. PERRLA. EOMI. Moist mucous membranes. Oropharynx is clear. Co njunctivae are anicteric. Neck: Supple. No JVD. Trachea midline. CV: S1, S2. Sinus tachycardia. Peripheral pulses present. Respiratory: Diminished breath sounds especially on the left base. No wheezing or stridor. Patient is tachypneic with use of accessory muscles. Gastrointestinal: Abdomen is soft, nontender, nondistended. Positive bowel sounds. No guarding or rigidity. Extremities: No clubbing, cyanosis, or edema. No calf tenderness. Neuro: Cranial nerves 2 through 12 intact grossly. No focal neurological deficit. Speech is normal . Skin: No rashes, normal skin turgor. Laboratory Data: INR 1.03, WBC 7.1, H and H 12.6 and 37.2, platelets 219. The patient has monocytos is. Sodium 136, potassium 4.5, chloride 102, CO2 of 27, BUN 12, creatinine 1.19, glucose 83, lactate 1.2, calcium 8.5. Procalcitonin less than 0.05. Lactate is 1.2. UA is pending. Influenza screen is positive for influenza A. Imaging Studies: Chest x-ray personally reviewed shows lung base appears hazy, which may represent m ild infiltrate pneumonia. Cervical hardware in place. Assessment: An 84-year-old female with, 1.Sepsis. Patient is tachycardic, febrile, has source of infection with pneumonia and influenza, wa s hypotensive with blood pressure in the 90s systolic. We will start with sepsis bundle IV fluids. We will start on IV antibiotics with azithromycin and Rocephin as well as Tamiflu for her influenza. Place on droplet precautions. We will obtain blood cultures and sputum culture. 2.Left lower lobe pneumonia. We will continue with IV antibiotics. Follow up with cultures. 3.Influenza A. We will start on Tamiflu. Place on droplet precautions. 4.Essential hypertension, currently hypotensive. We will hold blood pressure medications for now. 5.Mixed hyperlipidemia. 6.Rheumatoid arthritis. We will resume home medications as appropriate. 7.Dementia. 8.Gastroesophageal reflux disease. 9.Generalized anxiety disorder. 10.Irritable bowel syndrome. 11.History of chronic kidney disease, GFR is 43, likely stage III. 12.Deep venous thrombosis prophylaxis with Lovenox. Plan: Admit patient to Med-Surg, place as inpatient. Length of stay greater than 2 midnights. /KAIDEN Voice ID: [id number]
[2019-09-24] MEDS: GUAIFENESIN/DM 5 ML UCUP PO PRN (23:14)
[2019-09-25] MEDS: GUAIFENESIN/DM 5 ML UCUP PO PRN ×2 (08:55→18:02)
[2019-09-25] MEDS: OSELTAMIVIR PHOSPHATE 30 MG/5 ML SUSPENSION UD PO SCH ×2 (08:55→21:00)
[2019-09-25] MEDS ORDERED: CEFTRIAXONE 1 GM/NS 50 ML 1 GM/50 ML BAG IV SCH (09:00)
[2019-09-25] MEDS: LIDOCAINE 4% PATCH TD SCH (11:24)
[2019-09-25] MEDS: LOSARTAN POTASSIUM 50 MG TABLET PO SCH (14:30)
[2019-09-25] MEDS: GALANTAMINE 4 MG TAB PO SCH ×2 (14:30→21:00)
--- NOTE | 2019-09-25 14:32 | EKG ---
Test Date: 2019-09-24 Test Time: 14:48:01 Fireworks Maker: DEBI MEASUREMENT RESULTS: Intervals: Rate: 113 TX: 134 QRSD: 74 QT: 338 QTc: 463 [place]: P: 61 TX: 134 QRS: -10 T: 71 INTERPRETIVE STATEMENTS: Sinus tachycardia Nonspecific ST abnormality Abnormal ECG Compared to ECG 03/29/2006 18:27:05 ST (T wave) deviation now present Sinus rhythm no longer present T-wave abnormality no longer present Prolonged QT interval no longer present Electronically Signed On 09-25-19 14:31:28 MAGNETO REPAIRER by Aldo Gonzalez
[2019-09-25] MEDS: CEFTRIAXONE/SWI 1gm 1 GM/10 ML SYR IV SCH (16:21)
[2019-09-25] MEDS: AZITHROMYCIN IV 500 MG in NA CHLORIDE 0.9% 250 ML IVPB SCH (16:21)
--- NOTE | 2019-09-25 18:18 | PN ---
Date of Progress Note: 09/25/2019 Subjective: Patient is seen and examined. Chart reviewed and case discussed with RN. Patient is so mewhat confused. Otherwise, asking for her home medications. Seems better than yesterday. Medications: Reviewed. Physical Examination: Vital Signs: Temperature 98.2, heart rate 85, blood pressure 162/79, respirations 20, O2 of 98% on 2 L via nasal cannula. General: Awake, alert, oriented x2. Elderly female in some mild distress, ill appearing. CV: S1, S2. Regular rate and rhythm. Peripheral pulses present. Respiratory: Diminished breath sounds. Patient has diffuse wheezing. No use of accessory muscles, no stridor. Gastrointestinal: Abdomen is soft, nontender, nondistended. Positive bowel sounds. Extremities: No clubbing, cyanosis, or edema. Neurologic: Nonfocal. Laboratory Data: Blood cultures, no growth to date. Sputum culture is pending. Assessment: An 84-year-old female with: 1.Sepsis secondary to pneumonia and influenza. Patient was hypotensive, tachycardic. Blood pressur e improved. No further tachycardia. We will continue with azithromycin, Rocephin, and Tamiflu. Pat ient does get hypoxic. Follow up on cultures. 2.Left lower lobe pneumonia. Continue with IV antibiotics. Cultures pending. Patient has some hyp oxia with minimal exertion. We will consult Pulmonology. 3.Influenza A. Continue Tamiflu, droplet precautions. 4.Essential hypertension. Blood pressure now improved. No longer hypotensive. 5.Mixed hyperlipidemia, stable. 6.Rheumatoid arthritis, stable. 7.Dementia, Alzheimer's type without behavioral disturbance. Patient does have some sundowning. Re commend family member to stay with the patient. 8.Gastroesophageal reflux disease without esophagitis. 9.Generalized anxiety disorder, stable. 10.Irritable bowel syndrome. Patient reports multiple episodes of diarrhea. We will check stool st udies. If she has more than 3 within 24 hours, we will check Clostridium difficile. 11.History of chronic kidney disease, stage 3. We will continue to monitor. Avoid NSAIDs. 12.Deep venous thrombosis prophylaxis with Lovenox. Plan: Likely discharge in the next 24 to 48 hours depending on clinical response. PT/OT eval. HONG/TAEL Voice ID: [id number] Report ID: [id number]
[2019-09-25] MEDS: PANTOPRAZOLE 40MG TABLET PO SCH (21:00)
[2019-09-25] MEDS: GABAPENTIN 400 MG CAP PO SCH (21:00)
[2019-09-25] MEDS ORDERED: OSELTAMIVIR PHOSPHATE 30 MG/5 ML SUSPENSION UD PO SCH (22:00)
[2019-09-26 06:36] LABS: Absolute Lymphocytes (CBC) 1.5 K/uL (0.7-4.9); Basophils % 0.8 % (0-1.3); Hematocrit 36.6 % (36.0-45.0); Lymphocytes % 31.2 % (15.3-44.8); MPV 9.2 fL (7.6-11.3); RBC Red Blood Cell Count 4.16 M/uL (3.86-4.86)
[2019-09-26 06:47] LABS: Potassium 3.6 mmol/L (3.5-5.1)
[2019-09-26] MEDS: LIDOCAINE 4% PATCH TD SCH (09:13)
[2019-09-26] MEDS: OSELTAMIVIR PHOSPHATE 30 MG/5 ML SUSPENSION UD PO SCH ×2 (09:13→21:20)
[2019-09-26] MEDS: DULOXETINE 30 MG CAP PO SCH (09:14)
[2019-09-26] MEDS: PANTOPRAZOLE 40MG TABLET PO SCH ×2 (09:15→21:19)
[2019-09-26] MEDS: LOSARTAN POTASSIUM 50 MG TABLET PO SCH (09:15)
[2019-09-26] MEDS: GABAPENTIN 400 MG CAP PO SCH ×2 (09:15→21:19)
[2019-09-26] MEDS: GALANTAMINE 4 MG TAB PO SCH ×3 (09:15→21:19)
--- NOTE | 2019-09-26 14:12 | PN ---
Date of Progress Note: 09/26/2019 History: Patient was seen and examined, chart reviewed and case discussed with RN and Dr. Allen. The patient is still having some cough, has some sundowning. No family at the bedside. Medications: Reviewed. Physical Examination: Vital Signs: Temperature 97.8, heart rate 77, blood pressure 143/70, respirations 16, O2 96% on room air. General: Awake, alert, oriented x2, elderly female, demented. CV: S1, S2. Regular rate and rhythm. Peripheral pulses weak. Respiratory: Diminished breath sounds. Some rhonchi heard. No stridor. No use of accessory muscle s. Gastrointestinal: Abdomen is soft, nontender, nondistended. Positive bowel sounds. Extremities: No clubbing, cyanosis, or edema. Neurologic: Nonfocal. Laboratory Data: Sodium 138, potassium 3.6, chloride 103, CO2 29, BUN 9, creatinine 0.98, glucose 87 , calcium 8.2. WBC 4.8, H and H 12.3 and 36.6, platelets 174, neutrophils 44%. Blood cultures, no g rowth to date. Sputum culture is pending. Assessment And Plan: An 84-year-old female with; 1.Sepsis secondary to pneumonia and influenza, improving, still tachycardic. Blood pressure has imp roved. No longer hypotensive. Patient has been afebrile. White blood cell count is normal. Procal citonin negative. Cultures are pending. 2.Left lower lobe pneumonia. Continue with IV antibiotics. No growth on the cultures. On room air , no episodes of hypoxia since then. 3.Influenza A. continue Tamiflu, droplet precautions. 4.Essential hypertension resume home medications as appropriate. 5.Mixed hyperlipidemia, stable. 6.Rheumatoid arthritis, stable. 7.Dementia, Alzheimer's type without behavioral disturbance. Resume home medications. 8.Gastroesophageal reflux disease without esophagitis, stable. 9.Generalized anxiety disorder, stable. 10.Irritable bowel syndrome. Patient has had multiple episodes of diarrhea. We will check stool st udies to rule out C diff. 11.History of chronic kidney disease stage 3. Creatinine is stable. We will avoid NSAIDs. Continu e to monitor. 12.Deep venous thrombosis prophylaxis with Lovenox. Disposition: PT, OT eval. Likely discharge in the next 24 hours depending on clinical improvement. SA/MODL Voice ID: [id number] Report ID: [id number]
[2019-09-26] MEDS: CEFTRIAXONE/SWI 1gm 1 GM/10 ML SYR IV SCH (14:30)
[2019-09-26] MEDS: GUAIFENESIN/DM 5 ML UCUP PO PRN ×2 (15:18→21:19)
[2019-09-26] MEDS: AZITHROMYCIN IV 500 MG in NA CHLORIDE 0.9% 250 ML IVPB SCH (16:44)
[2019-09-27] MEDS ORDERED: PHENOL 1.4% ORAL SPRAY 180ML MM PRN (09:50)
[2019-09-27] MEDS: LIDOCAINE 4% PATCH TD SCH (10:28)
[2019-09-27] MEDS: GALANTAMINE 4 MG TAB PO SCH ×3 (10:30→21:50)
[2019-09-27] MEDS: GUAIFENESIN/DM 5 ML UCUP PO PRN ×2 (10:30→21:50)
[2019-09-27] MEDS: DULOXETINE 30 MG CAP PO SCH (10:31)
[2019-09-27] MEDS: LOSARTAN POTASSIUM 50 MG TABLET PO SCH (10:32)
[2019-09-27] MEDS: PANTOPRAZOLE 40MG TABLET PO SCH ×2 (10:32→21:48)
[2019-09-27] MEDS: GABAPENTIN 400 MG CAP PO SCH ×2 (10:32→21:49)
--- NOTE | 2019-09-27 11:33 | P.CNS ---
Date of Consult: 09/26/19 Chief Complaint: Cough History of Present Illness: Patient is 84 years of age multiple medical problems and admitted with a 1 week onset of cough congestion shortness of breath he has had a chronic cough patient does not smoke Multiple medical problems positive for influenza A Allergies codeine Allergy (Verified 09/24/19 22:04) Itching meperidine [From Demerol] Allergy (Verified 09/24/19 21:28) Itching/Hives/Rash celecoxib [From Celebrex] Adverse Reaction (Verified 09/24/19 21:28) rectal bleeding Home Medications: Albuterol Inhaler [Ventolin Inhaler*] 2 puff IN Q6H PRN 09/25/19 Alendronate Sodium [Fosamax] 70 mg PO ONCE 09/25/19 Duloxetine HCl 90 mg PO DAILY 09/25/19 Gabapentin 2 tab PO BID 09/25/19 Galantamine HBr [Razadyne] 4 mg PO TID 09/25/19 Losartan Potassium [Cozaar] 100 mg PO DAILY 09/25/19 Omeprazole [Prilosec] 40 mg PO BID 09/25/19 Trazodone HCl 100 mg PO BEDTIME 09/25/19 - Past Medical/Surgical History Diabetic: No -: high cholesterol -: hypertension -: rheumatoid arthritis -: dementia -: GERD -: dementia -: anxiety -: IBS -: CKD -: D&C -: cholecystectomy -: hyterectomy -: left wrist sx -: right foot sx -: throat-metal - Social History Smoking Status: Never smoker Alcohol use: No CD- Drugs: No Caffeine use: No Place of Residence: Home Review of Systems 10-point ROS is otherwise unremarkable General: Weakness Respiratory: Cough, Shortness of Breath Physical Examination Temp Pulse Resp BP Pulse Ox 97.4 F 69 18 127/63 95 09/27/19 08:00 09/27/19 08:00 09/27/19 08:00 09/27/19 08:00 09/27/19 08:00 General: Alert, In no apparent distress, Oriented x3 Neck: Supple Respiratory: Clear to auscultation bilaterally Cardiovascular: No edema, Regular rate/rhythm, Normal S1 S2 Gastrointestinal: Normal bowel sounds, Soft and benign - Problems (1) Cough Current Visit: Yes Status: Acute Plan: Patient is 84 years of age admitted with acute worsening of full pulmonary complaints associated with cough and weakness shortness of breath she has had chronic intermittent cough no response to bronchodilator chemistries unremarkable white count is normal no evidence of sepsis chest x-ray doubt pneumonia labs unremarkable I have added p.o. doxycycline reduce dose of prednisone add bronchodilators possible discharge
--- NOTE | 2019-09-27 12:23 | PN ---
Date of Progress Note: 09/27/2019 Subjective: Patient is seen and examined. Chart reviewed and case discussed with RN and Dr. Allen. Patient seems very apprehensive about going home, was very frustrated, very agitated toward myself and nursing staff and felt that she is not ready to go home. I explained to her that we are awaiting stool cultures due to her significant amount of diarrhea. Clinically, she is significantly improved. Does complain of some sore throat. Explained to her that due to her flu pneumonia and coughing, she will have a sore throat and cough will continue for several weeks after improvement. Medications: List reviewed. Physical Examination: Vital Signs: Temperature 97.4, heart rate 69, blood pressure 127/63, respirations 18, O2 of 95% on room air. General: Awake, alert, oriented, not in any acute distress, elderly female. CV: S1, S2. Regular rate and rhythm. Respiratory: Moving air well bilaterally. No wheezing or stridor. Gastrointestinal: Abdomen is soft, nontender, nondistended. Positive bowel sounds. Extremities: No clubbing, cyanosis, or edema. Neurologic: Nonfocal. Laboratory Data: Pending. Repeat chest x-ray is also pending. Stool cultures pending at this time. C diff assay is also pending. Blood culture showed no growth to date. Sputum culture shows normal jasmeet. Assessment: An 84-year-old female with: 1. Sepsis secondary to pneumonia and influenza, resolved. Blood pressure stable, not tachycardic, afebrile. White blood cell count normal. No signs of further sepsis. Cultures are negative to date. 2. Left lower lobe pneumonia. Continue with antibiotics, currently on room air. We will repeat chest x-ray. No episodes of hypoxia. 3. Influenza A. Continue Tamiflu and droplet precautions. 4. Essential hypertension, stable on home medications. 5. Mixed hyperlipidemia, stable. 6. Rheumatoid arthritis, stable. 7. Dementia, Alzheimer's type without behavioral disturbance, currently agitated, stable. 8. Gastroesophageal reflux disease without esophagitis, stable. 9. Generalized anxiety disorder, stable. 10. Irritable bowel syndrome and now with diarrhea, rule out C difficile and stool infection. Patient is on antibiotics, currently pending. 11. History of chronic kidney disease, stage 3. Creatinine is stable. Continue to monitor. Avoid NSAIDs. 12. Deep venous thrombosis prophylaxis with Lovenox. Plan: I recommended [facility] facility placement for the patient. At this time, she is aggravated and is not properly considering her options. She does not want to go home and also does not want to go to [facility] facility. I spoke with her daughter at length. I explained to her that the patient's condition is significantly improved. There was no signs of sepsis. She is not requiring any supplemental oxygen. Her cultures are negative. Her white blood cell count is normal. Her lungs appear to sound clear. I am repeating a chest x-ray to ensure resolution of her pneumonia. However, clinically significantly improved. She should be getting ready to be discharged either at [facility] facility or home with home PT. We are awaiting stool culture results and C diff to be ruled out prior to any discharge. Daughter is interested in [facility] facility placement. However, the patient despite her dementia is oriented and can make her own decisions. I encouraged the daughter to speak with the patient at this time. For now, we will await stool culture results. I explained to the patient that she will get Chloraseptic spray for her sore throat. It is common for patient to continue coughing for several weeks despite feeling clinically better with the pneumonia and influenza. She was also explained to her that she is stable for discharge. Does not need to continue hospitalization just because she has pneumonia and influenza. At this time, she is clinically stable for the reasons mentioned above. SARAVANAN Voice ID: [id number] Report ID: [id number] SEVEN
[2019-09-27] MEDS: predniSONE 20 MG TAB PO SCH ×2 (12:48→21:49)
[2019-09-27] MEDS: OSELTAMIVIR PHOSPHATE 30 MG/5 ML SUSPENSION UD PO SCH ×2 (12:49→22:18)
[2019-09-27] MEDS: IPRATROPIUM BROM 0.5MG/2.5ML NEB SCH ×2 (14:07→20:00)
--- NOTE | 2019-09-27 19:06 | RAD REPORT ---
EXAM DESCRIPTION: Maegan Pa And Lat (2 Views)09/27/2019 6:50 pm CLINICAL HISTORY: Cough COMPARISON: September 24, 2019 FINDINGS: Left basilar opacity has resolved. Lungs appear clear of acute infiltrate. The heart is normal size IMPRESSION: Resolution the mild left basilar pneumonia
[2019-09-27] MEDS: DOXYCYCLINE 100 MG CAP PO SCH (21:49)
[2019-09-27] MEDS ORDERED: MELATONIN 3 MG TABLET PO PRN (22:41)
[2019-09-28] MEDS: IPRATROPIUM BROM 0.5MG/2.5ML NEB SCH ×4 (02:38→20:30)
[2019-09-28 04:17] LABS: Absolute Lymphocytes (CBC) 1.1 K/uL (0.7-4.9); Basophils % 0.3 % (0-1.3); Hematocrit 35.5 % (36.0-45.0); Lymphocytes % 31.7 % (15.3-44.8); MPV 8.9 fL (7.6-11.3); RBC Red Blood Cell Count 4.09 M/uL (3.86-4.86)
[2019-09-28 04:32] LABS: Albumin 3.3 g/dL (3.4-5.0); Bilirubin Total 0.4 mg/dL (0.2-1.0); Potassium 4.1 mmol/L (3.5-5.1); Protein, Total 6.4 g/dL (6.4-8.2)
[2019-09-28] MEDS: GUAIFENESIN/DM 5 ML UCUP PO PRN (04:37)
[2019-09-28] MEDS: LOSARTAN POTASSIUM 50 MG TABLET PO SCH (04:37)
[2019-09-28] MEDS: GALANTAMINE 4 MG TAB PO SCH ×3 (09:02→21:46)
[2019-09-28] MEDS: DOXYCYCLINE 100 MG CAP PO SCH ×2 (09:02→21:50)
[2019-09-28] MEDS: predniSONE 20 MG TAB PO SCH ×2 (09:02→21:46)
[2019-09-28] MEDS: GABAPENTIN 400 MG CAP PO SCH ×2 (09:02→21:46)
[2019-09-28] MEDS: OSELTAMIVIR PHOSPHATE 30 MG/5 ML SUSPENSION UD PO SCH ×2 (09:03→21:46)
[2019-09-28] MEDS: PANTOPRAZOLE 40MG TABLET PO SCH ×2 (09:03→21:47)
[2019-09-28] MEDS: LIDOCAINE 4% PATCH TD SCH (09:04)
[2019-09-28] MEDS: DULOXETINE 30 MG CAP PO SCH (09:04)
[2019-09-28] MEDS ORDERED: HYDRALAZINE HCL 20 MG/ML VIAL IV PRN (14:24)
--- NOTE | 2019-09-28 16:26 | PN ---
Date of Progress Note: 09/28/2019 Subjective: Patient is seen and examined. Chart reviewed and case discussed with RN and Dr. Brock dunne. Patient's daughter and pharmacist apparently at the bedside. Treatment plan explained. All ques tions answered. Patient still states that she is not feeling back to her usual self. Continues to h ave diarrhea and complaining of dizziness. Also wanting to restart her trazodone for insomnia. Sandee martin is on melatonin in the hospital. Medications: List reviewed. Physical Examination: Vital Signs: Temperature 97.4, heart rate 80, blood pressure 187/81, respirations 16, O2 97% on room air. General: Awake, alert, oriented x3. Elderly female. Does not appear to be in any acute distress. CV: S1, S2. Regular rate and rhythm. Peripheral pulses present. Respiratory: Moving air well bilaterally. No wheezing or stridor. No use of accessory muscles. Gastrointestinal: Abdomen is soft, nontender, nondistended. Positive bowel sounds. No guarding or rigidity. Extremities: No clubbing, cyanosis, or edema. Neurologic: Nonfocal. Laboratory Data: Sodium 135, potassium 4.1, chloride 101, CO2 of 31, BUN 11, creatinine 0.82, glucos e 132, calcium 8.4, albumin 3.3. WBC 3.6, H and H of 12.1 and 35.5, platelets 172, neutrophils 56%. Blood cultures, no growth to date. Stool cultures are pending. Sputum culture, normal jasmeet. Ches t x-ray from 09/27/2019, resolution of the mild left basilar pneumonia. Assessment: An 84-year-old female with. 1.Sepsis secondary to pneumonia and influenza, resolved. Switched over to doxycycline. 2.Left lower lobe pneumonia. Continue doxycycline. Currently on room air. Chest x-ray is clear. No hypoxia. 3.Influenza A. Continue Tamiflu, droplet precautions. 4.Essential hypertension, not well controlled. Placed on hydralazine p.r.n. 5.Mixed hyperlipidemia, stable. 6.Rheumatoid arthritis, stable. Hydroxychloroquine was not on patient's medication list from home. However, her pharmacist states that she is on it and will have nurse update her home medications lis t. 7.Alzheimer dementia without behavioral disturbance, stable. 8.Gastroesophageal reflux disease without esophagitis, stable. 9.Generalized anxiety disorder, stable. 10.Irritable bowel syndrome with diarrhea, rule out Clostridium difficile in stool infection. 11.History of chronic kidney disease stage 3, creatinine is stable. 12.Deep venous thrombosis prophylaxis with Lovenox. Plan: [facility] facility placement once accepted. Follow up on C difficile and stool cultures . /KAIDEN Voice ID: [id number] Report ID: [id number]
[2019-09-28] MEDS ORDERED: TRAZODONE 50 MG TABLET PO SCH (21:00)
[2019-09-28] MEDS ORDERED: HOME MED 1 EA UNK (Trazodone Hcl [Trazodone Hcl] 100 MG) PO SCH (21:00)
[2019-09-28] MEDS: TRAZODONE 50 MG TABLET PO PRN (21:50)
[2019-09-29] MEDS: IPRATROPIUM BROM 0.5MG/2.5ML NEB SCH ×4 (01:25→20:23)
[2019-09-29] MEDS: LIDOCAINE 4% PATCH TD SCH (08:55)
[2019-09-29] MEDS: GABAPENTIN 400 MG CAP PO SCH ×2 (08:56→21:04)
[2019-09-29] MEDS: DULOXETINE 30 MG CAP PO SCH (08:56)
[2019-09-29] MEDS: GALANTAMINE 4 MG TAB PO SCH ×3 (08:56→21:06)
[2019-09-29] MEDS: LOSARTAN POTASSIUM 50 MG TABLET PO SCH (08:56)
[2019-09-29] MEDS: PANTOPRAZOLE 40MG TABLET PO SCH ×2 (08:57→21:06)
[2019-09-29] MEDS: predniSONE 20 MG TAB PO SCH ×2 (08:57→21:05)
[2019-09-29] MEDS: DOXYCYCLINE 100 MG CAP PO SCH ×2 (08:57→21:04)
[2019-09-29] MEDS ORDERED: ONDANSETRON 4 MG/2 ML VIAL IV PRN (15:17)
--- NOTE | 2019-09-29 17:47 | P.PN ---
Subjective Date of Service: 09/29/19 Chief Complaint: Cough Patient is complaining of nausea today. She reports intermittent diarrhea. Last episode was suggested. No bowel movement from morning to the time I saw her today. Physical Examination - Vital Signs Temperature: 98.7 F Blood Pressure: 172/84 Pulse: 80 Respirations: 20 Pulse Ox (%): 93 - Physical Exam General: Alert, In no apparent distress, Oriented x3 HEENT: Mucous membr. moist/pink Neck: Supple, JVD not distended Respiratory: Clear to auscultation bilaterally, Normal air movement Cardiovascular: No edema Gastrointestinal: Normal bowel sounds, Soft and benign, Non-distended, No tenderness Musculoskeletal: No swelling Integumentary: No rashes Neurological: Normal speech, Other (Nonfocal) - Studies Microbiology Data (last 24 hrs): 09/24/19 14:52 Blood - Blood Aerobic Blood Culture - Final No growth in 5 days. 09/24/19 14:52 Blood - Blood Anaerobic Blood Culture - Final No growth in 5 days. 09/24/19 14:40 Blood - Blood Aerobic Blood Culture - Final No growth in 5 days. 09/24/19 14:40 Blood - Blood Anaerobic Blood Culture - Final No growth in 5 days. Assessment And Plan - Current Problems (Diagnosis) (1) Influenza A Current Visit: Yes Status: Acute (2) Pneumonia Current Visit: Yes Status: Resolved (3) Sepsis Current Visit: Yes Status: Resolved (4) Dementia Current Visit: Yes Status: Chronic (5) Impaired mobility Current Visit: Yes Status: Acute (6) Essential hypertension Current Visit: Yes Status: Acute - Plan Continue supportive measures. Patient to complete 3 days of oral steroid Follow stool culture given intermittent diarrhea. Blood pressure is uncontrolled. Add oral amlodipine. Hydralazine IV p.r.n. for BP spikes. PT and OT Disposition to skilled rehab.
[2019-09-29] MEDS: GUAIFENESIN/DM 5 ML UCUP PO PRN (17:59)
[2019-09-29] MEDS: TRAZODONE 50 MG TABLET PO PRN (21:05)
[2019-09-30] MEDS: IPRATROPIUM BROM 0.5MG/2.5ML NEB SCH ×3 (01:42→14:45)
[2019-09-30 04:17] LABS: Absolute Lymphocytes (CBC) 1.4 K/uL (0.7-4.9); Basophils % 0.5 % (0-1.3); Hematocrit 36.6 % (36.0-45.0); Lymphocytes % 26.9 % (15.3-44.8); MPV 8.7 fL (7.6-11.3); RBC Red Blood Cell Count 4.21 M/uL (3.86-4.86)
[2019-09-30 04:40] LABS: Potassium 4.7 mmol/L (3.5-5.1)
[2019-09-30 08:52] VITALS: O2SAT 92
[2019-09-30] MEDS ORDERED: AMLODIPINE 5 MG TAB PO SCH (09:00)
[2019-09-30] MEDS: LIDOCAINE 4% PATCH TD SCH (09:41)
[2019-09-30] MEDS: GABAPENTIN 400 MG CAP PO SCH (09:43)
[2019-09-30] MEDS: DULOXETINE 30 MG CAP PO SCH (09:43)
[2019-09-30] MEDS: PANTOPRAZOLE 40MG TABLET PO SCH (09:44)
[2019-09-30] MEDS: DOXYCYCLINE 100 MG CAP PO SCH (09:47)
[2019-09-30] MEDS: predniSONE 20 MG TAB PO SCH (09:48)
[2019-09-30] MEDS: GALANTAMINE 4 MG TAB PO SCH ×2 (09:48→14:56)
[2019-09-30] MEDS: LOSARTAN POTASSIUM 50 MG TABLET PO SCH (09:49)
[2019-09-30 12:18] VITALS: BP 140/67; TEMP 98.2
--- NOTE | 2019-09-30 14:49 | P.DS ---
Admission Date: 09/24/19 Discharge Date: 09/30/19 Disposition: TRANSFER TO SNF - REHAB Discharge Condition: GOOD Reason for Admission: Cough - Problems (1) Influenza A Current Visit: Yes Status: Acute (2) Pneumonia Current Visit: Yes Status: Resolved (3) Sepsis Current Visit: Yes Status: Resolved (4) Dementia Current Visit: Yes Status: Chronic (5) Impaired mobility Current Visit: Yes Status: Acute (6) Essential hypertension Current Visit: Yes Status: Acute (7) Irritable bowel syndrome Current Visit: Yes Status: Acute Brief History of Present Illness: 84-year-old woman with a history of hypertension, irritable bowel syndrome presented to the emergency department with a complaint of generalized weakness and cough. Patient noted to be influenza A positive in the ED. Chest x-ray demonstrated a left lower lobe opacification suggestive of pneumonia. She was tachycardic and febrile at 101 in the ED met criteria for sepsis. Patient was admitted for further management. Hospital Course: She was treated with IV Rocephin and Zithromax, for sepsis and pneumonia, oral Tamiflu for influenza A infection. Blood cultures yielded no growth. Sputum culture grew normal jasmeet. Patient was seen and evaluated by pulmonary Dr. Allen and placed on oral steroids. Sepsis resolved. Antibiotics was scaled down to oral doxycycline. Patient clinically improved with treatment. She did not require oxygen. She had bouts of diarrhea which is related to irritable bowel syndrome. Her stool culture grew normal stool jasmeet. Patient seen and evaluated by physical therapy and noted to have ataxic/unstable gait. Skilled rehab was recommended. Patient has been accepted for rehab. She is deemed clinically stable for discharge. She completed a short course of oral prednisone. Vital Signs/Physical Exam: Temp Pulse Resp BP Pulse Ox 98.2 F 87 16 140/67 92 09/30/19 12:00 09/30/19 12:00 09/30/19 12:00 09/30/19 12:00 09/30/19 12:00 General: Alert, In no apparent distress, Oriented x3 HEENT: PERRLA, Mucous membr. moist/pink, Sclerae nonicteric Neck: Supple, JVD not distended Respiratory: Clear to auscultation bilaterally, Normal air movement Cardiovascular: No edema, Regular rate/rhythm, Normal S1 S2 Gastrointestinal: Normal bowel sounds, Soft and benign, Non-distended, No tenderness Musculoskeletal: No swelling Integumentary: No rashes, No erythema Neurological: Normal speech, Normal strength at 5/5 x4 extr Laboratory Data at Discharge: WBC 5.3 K/uL (4.3-10.9) D 09/30/19 03:55 Hgb 12.3 g/dL (12.0-15.0) 09/30/19 03:55 Hct 36.6 % (36.0-45.0) 09/30/19 03:55 Plt Count 208 K/uL (152-406) D 09/30/19 03:55 PT 12.1 SECONDS (9.5-12.5) 09/24/19 14:40 INR 1.03 09/24/19 14:40 APTT 36.0 SECONDS (24.3-36.9) 09/24/19 14:40 Sodium 146 mmol/L (136-145) H 09/30/19 03:55 Potassium 4.7 mmol/L (3.5-5.1) 09/30/19 03:55 BUN 18 mg/dL (7-18) 09/30/19 03:55 Creatinine 0.96 mg/dL (0.55-1.3) 09/30/19 03:55 Glucose 122 mg/dL (74-106) H 09/30/19 03:55 Total Bilirubin 0.4 mg/dL (0.2-1.0) 09/28/19 03:56 AST 25 U/L (15-37) 09/28/19 03:56 ALT 28 U/L (12-78) 09/28/19 03:56 Alkaline Phosphatase 42 U/L (45-117) L 09/28/19 03:56 Lipase 70 U/L (73-393) L 09/24/19 14:40 Home Medications: Albuterol Inhaler [Ventolin Inhaler*] 2 puff IN Q6H PRN 09/25/19 Alendronate Sodium [Fosamax] 70 mg PO ONCE 09/25/19 Duloxetine HCl 90 mg PO DAILY 09/25/19 Gabapentin 2 tab PO BID 09/25/19 Galantamine HBr [Razadyne] 4 mg PO TID 09/25/19 Losartan Potassium [Cozaar] 100 mg PO DAILY 09/25/19 Omeprazole [Prilosec] 40 mg PO BID 09/25/19 Trazodone HCl 100 mg PO BEDTIME 09/25/19 Doxycycline Hyclate [Vibramycin] 100 mg PO BID #6 capsule 09/30/19 Guaif/Dm [Robitussin Dm*] 5 ml PO Q6H PRN ucup 09/30/19 Lidocaine 4% Patch [Lidoderm 5% Patch*] 1 patch TD DAILY patch 09/30/19 Loperamide HCl [Loperamide] 1 mg PO PRN PRN #30 tablet MDD 4 09/30/19 Melatonin [Melatonin*] 3 mg PO BEDTIME PRN PRN tablet 09/30/19 New Medications: Doxycycline Hyclate [Vibramycin] 100 mg PO BID #6 capsule Loperamide HCl [Loperamide] 1 mg PO PRN PRN #30 tablet MDD 4 PRN Reason: Diarrhea Diet: AHA Activity: Fall precautions Time spent managing pt's care (in minutes): 45
[2019-09-30] MEDS: GUAIFENESIN/DM 5 ML UCUP PO PRN (14:57)
== END 2019-09-30 15:47 | DRG 871 ==
LOC: ER 14:28 → ERHOLD 16:25 → 4TH 19:51
PROVIDERS: ADMIT Family Medicine; ATTEND Family Medicine
DX: A41.9 Sepsis, unspecified organism (principal); J09.X1 Influenza due to identified novel influenza A virus with pneumonia; K58.0 Irritable bowel syndrome with diarrhea; E78.2 Mixed hyperlipidemia; M06.9 Rheumatoid arthritis, unspecified; G30.9 Alzheimer's disease, unspecified; F02.80 Dementia in other diseases classified elsewhere, unspecified severity, without behavioral disturbance, psychotic disturbance, mood disturbance, and anxiety; K21.9 Gastro-esophageal reflux disease without esophagitis; F41.1 Generalized anxiety disorder; I12.9 Hypertensive chronic kidney disease with stage 1 through stage 4 chronic kidney disease, or unspecified chronic kidney disease; N18.3 Chronic kidney disease, stage 3 (moderate)
CPT/HCPCS: 36415; 71045; 71046; 80048; 80053; 80076; 81003; 81015; 82550; 82553; 83605; 83690; 84145; 84484; 85025; 85610; 85730; 87040; 87045; 87046; 87070; 87205; 87804; 93005; 94640; 94760; 96365; 96367; 97112; 97116; 97161; 97530; 99285; J0360; J0456; J0696; J2405; J7030; J7512

== ENCOUNTER 2019-10-19 19:58 | Emergency (ER) | payer OTHER ==
--- OUTSIDE RECORDS SUMMARY | 2019-10-19 20:00 | XMS REPORT ---
:1935 [facility] Providers Name Role Phone Myrtle [...] Status Dosage System Date Date Ventolin HFA [facility] [id number] 108 (90 Base) Sep 04, Active 2 puffs as MCG/ACT 2020 needed for Inhalation cough/wheez every 6 hrs ing Hydroxychloroquine [facility] 23309478621 200 MG Orally Active 1 tablet Sulfate Once a day with food or milk PredniSONE ND 83975466590 5 MG Orally Active 1 tablet Once a day Cetirizine HCl [facility] 43701766587 10 MG Orally March Active 1 tablet Once a day 2018 Duloxetine HCl [facility] 23498697611 60 MG Orally Active 1 capsule Once daily in (take with am duloxetine 30 mg) Gabapentin [facility] 68274313244 100 MG Orally Active 1 capsule Three times a day Probiotic Digestive [facility] 11302135363 - Orally Active as directed Support Leflunomide [facility] 56130663426 20 MG Orally Active 1 tablet Once a day Propranolol HCl [facility] 22893864189 20 MG Orally Active 1 tablet on Once a day an empty stomach Dicyclomine HCl [facility] 02965057732 20 MG Orally Active 1 tablet Four times a day Omeprazole [facility] 55695110047 40 MG Orally Active 1 capsule Once a day Duloxetine HCl [facility] 58897167234 30 MG Orally Jun 29, Active 1 capsule Once a day in 2018 (take with am duloxetine 60 mg) Trazodone HCl [facility] 62946384552 50 MG Orally Active 1 tablet at Once a day bedtime as needed Galantamine [facility] 66991499935 4 MG Orally Active 1 tablet Hydrobromide Twice a day with meals Results No Known Results Summary Purpose eClinicalWorks Submission
--- OUTSIDE RECORDS SUMMARY | 2019-10-19 20:00 | XMS REPORT ---
:1935 [facility] Team Providers Name Role Phone Daylin Martinez Provider Role Unavailable Allergies No Known Allergies Problems Problem Type Condition Code Onset Dates Condition Status Assessment Shortness of breath R06.02 Active Assessment Tachycardia R00.0 Active Problem Bladder problem N32.9 Active Problem Sciatica of left side M54.32 Active Problem Sciatica, right side M54.31 Active Problem Rheumatoid arthritis involving M06.9 Active multiple sites, unspecified rheumatoid factor presence Problem 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 disorder, unspecified whether recurrent Problem Dementia without behavioral F03.90 Active disturbance, unspecified dementia type Problem Mixed stress and urge urinary N39.46 Active incontinence Problem Seasonal allergies J30.2 Active Problem 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 Active Problem Gastroesophageal reflux disease, K21.9 Active esophagitis presence not specified Problem Macular degeneration of both eyes, H35.30 Active unspecified type Problem At risk for falling Z91.81 Active Problem Insomnia, unspecified type G47.00 Active Problem Tachycardia R00.0 Active Problem Rash and nonspecific skin eruption R21 Active Problem Essential hypertension I10 Active Problem Allergic rhinitis J30.9 Active Problem Shortness of breath R06.02 Active Problem Osteoarthritis, unspecified M19.90 Active osteoarthritis type, unspecified site Problem Hoarseness of voice R49.0 Active Problem Pain in left hip M25.552 Active Problem Depression with anxiety F41.8 Active Problem Pain in right hip M25.551 Active Problem Memory problem R41.3 Active Problem Irritable bowel syndrome with K58.0 Active diarrhea Problem Anxiety F41.9 Active Problem Fibromyalgia M79.7 Active Problem Irritable bowel K58.9 Active Problem Reflux K21.9 Active Problem Kidney disease N28.9 Active Problem Sinus problem J34.9 Active Medications Medication Code Code Instructions Start End Status Dosage System Date Date Leflunomide [facility] 77213701863 20 MG Orally Active 1 tablet Once a day Ventolin HFA [facility] 44573115609 108 (90 Base) [place]asta 03, Active 2 puffs as MCG/ACT 2019 needed for Inhalation cough/wheez every 6 hrs ing Hydroxychloroquine ND 11494395518 200 MG Orally Active 1 tablet Sulfate Once a day with food or milk Duloxetine HCl ND 12216333912 30 MG Orally Jun 29, Active 1 capsule Once a day in 2019 (take with am duloxetine 60 mg) Dicyclomine HCl ND 15074401087 20 MG Orally Active 1 tablet Four times a day Propranolol HCl ND 50818043922 20 MG Orally Active 1 tablet on Once a day an empty stomach Trazodone HCl ND 12094865057 50 MG Orally Active 1 tablet at Once a day bedtime as needed Gabapentin ND 54494426049 100 MG Orally Active 1 capsule Three times a day Galantamine ND 46792449185 4 MG Orally Active 1 tablet Hydrobromide Twice a day with meals Omeprazole ND 61641904015 40 MG Orally Active 1 capsule Once a day PredniSONE ND 75286930416 5 MG Orally Active 1 tablet Once a day Probiotic Digestive [facility] 80757322024 - Orally Active as directed Support Duloxetine HCl ND 96230242354 60 MG Orally Active 1 capsule Once daily in (take with am duloxetine 30 mg) Results No Known Results Summary Purpose eClinicalWorks Submission
--- OUTSIDE RECORDS SUMMARY | 2019-10-19 20:00 | XMS REPORT ---
:1935 [facility] Address [address] [place] [address] Care Team Providers Name Role Phone Unavailable Unavailable Unavailable Problems This patient has no known problems. Allergies, Adverse Reactions, Alerts This patient has no known allergies or adverse reactions. Medications This patient has no known medications.
--- OUTSIDE RECORDS SUMMARY | 2019-10-19 20:00 | XMS REPORT ---
:1935 Author Organization eClinical[employer] Care Team Providers Name Role Phone Michelle Daylin Provider Role Unavailable Allergies No Known Allergies [...]
[2019-10-19] MEDS ORDERED: KETOROLAC 30 MG/ML INJ ONE (21:59)
[2019-10-19 22:58] LABS: Absolute Lymphocytes (CBC) 1.5 K/uL (0.7-4.9); Basophils % 0.7 % (0-1.3); Hematocrit 35.8 % (36.0-45.0); Lymphocytes % 13.6 % (15.3-44.8); MPV 8.3 fL (7.6-11.3); RBC Red Blood Cell Count 3.98 M/uL (3.86-4.86)
[2019-10-19 23:09] LABS: Albumin 3.2 g/dL (3.4-5.0); Bilirubin Total 0.5 mg/dL (0.2-1.0); Potassium 4.1 mmol/L (3.5-5.1); Protein, Total 6.8 g/dL (6.4-8.2)
--- NOTE | 2019-10-19 23:10 | RAD REPORT ---
EXAM DESCRIPTION: RAD - Chest Single View - 10/19/2019 9:42 pm CLINICAL HISTORY: Back pain;Cough Chest pain. COMPARISON: Chest Pa And Lat (2 Views) dated 09/27/2019; Chest Single View dated 09/24/2019; Chest Pa And Lat (2 Views) dated 06/29/2019; Chest Pa And Lat (2 Views) dated 03/26/2018 FINDINGS: Portable technique limits examination quality. Mild linear opacities are identified in the left base which may represent atelectasis or developing p neumonia. The lungs are otherwise clear. The heart is normal in size. No displaced fractures.
[2019-10-19 23:37] LABS: Blood Morphology Comment NOTED (NOT SEEN); Hypochromasia 1+; Platelet Estimate ADEQ; Stomatocytes 1+
--- NOTE | 2019-10-19 23:52 | ER ---
Nurse's Notes [facility] Name: Amara Shipley Age: 84 yrs Sex: Female : 1935 Arrival Date: 10/19/2019 Time: 20:02 Bed 25 Private MD: Diagnosis: Pneumonia, unspecified organism;Thoracic back pain Presentation: 10/19 20:06 Presenting complaint: Patient states: Pt reports the pain started this AM and is ea located in her midback and moves to her ear, denies fall injury. Pt reports seeing her physician yesterday and started new medication today. Transition of care: patient was not received from another setting of care. Onset of symptoms was October 19, 2019. Risk Assessment: Do you want to hurt yourself or someone else? Patient reports no desire to harm self or others. Initial Sepsis Screen: Does the patient meet any 2 criteria? No. Patient's initial sepsis screen is negative. Does the patient have a suspected source of infection? No. Patient's initial sepsis screen is negative. Care prior to arrival: None. 20:06 Method Of Arrival: Ambulatory ea 20:06 Acuity: MAIDA 3 ea Triage Assessment: 20:17 General: Appears uncomfortable, Behavior is appropriate for age. Pain: Complains of ea pain in thoracic area. Musculoskeletal: Circulation, motion, and sensation intact. Historical: - Allergies: 20:17 Celebrex; ea 20:17 Codeine; ea 20:17 Demerol; ea - PMHx: 20:17 Anxiety; CKD; Dementia; GERD; High Cholesterol; ibs; Rheumatic arthritis; Hypertension; ea - Immunization history:: Adult Immunizations up to date. - Coronavirus screen:: The patient has NOT traveled to [place] in the past 14 days. - Social history:: Smoking status: Patient denies any tobacco usage or history of. - Ebola Screening: : No symptoms or risks identified at this time. Screenin:15 Abuse screen: Denies threats or abuse. Nutritional screening: No deficits noted. ea Tuberculosis screening: No symptoms or risk factors identified. Fall Risk None identified. Assessment: 20:30 General: Appears in no apparent distress. uncomfortable, Behavior is calm, cooperative, vc appropriate for age. Pain: Complains of pain in back and thoracic area left side of neck. Neuro: Level of Consciousness is awake, alert, obeys commands, Oriented to person, place, situation. Cardiovascular: Patient's skin is warm and dry. Respiratory: Airway is patent Respiratory effort is even, unlabored, Respiratory pattern is regular, symmetrical. GI: No signs and/or symptoms were reported involving the gastrointestinal system. : No signs and/or symptoms were reported regarding the genitourinary system. EENT: No signs and/or symptoms were reported regarding the EENT system. Derm: Skin temperature is warm. Musculoskeletal: Circulation, motion, and sensation intact. Range of motion: intact in all extremities. 21:30 Reassessment: Patient and/or family updated on plan of care and expected duration. Pain vc level reassessed. Patient is alert, oriented x 3, equal unlabored respirations, skin warm/dry/pink. 22:30 Reassessment: Patient and/or family updated on plan of care and expected duration. Pain vc level reassessed. Patient is alert, oriented x 3, equal unlabored respirations, skin warm/dry/pink. Patient denies pain at this time. 23:30 Reassessment: Patient and/or family updated on plan of care and expected duration. Pain vc level reassessed. Patient is alert, oriented x 3, equal unlabored respirations, skin warm/dry/pink. Patient states feeling better. Patient states symptoms have improved. Vital Signs: 20:15 BP 118 / 94; Pulse 98; Resp 18; Temp 97.6; Pulse Ox 100% ; Weight 66.5 kg; Height 5 ft. ea 1 in. (154.94 cm); 22:00 BP 131 / 88; Pulse 97; Resp 20; Pulse Ox 100% on R/A; vc 23:00 BP 126 / 80; Pulse 88; Resp 18; Pulse Ox 98% on R/A; vc 10/20 00:00 BP 133 / 87; Pulse 92; Resp 20; Pulse Ox 99% on R/A; vc 10/19 20:15 Body Mass Index 27.70 (66.50 kg, 154.94 cm) ea ED Course: 10/19 20:02 Patient arrived in ED. ag3 20:07 Triage completed. ea 20:17 Arm band placed on right wrist. Patient placed in an exam room, on a stretcher. ea 20:18 Devendra Bahena NP is PHCP. pm1 20:18 Octavio Marroquin MD is Attending Physician. pm1 20:23 Salina Lake, RN is Primary Nurse. vc 20:30 Patient has correct armband on for positive identification. vc 21:28 Strep Sent. vc 21:28 Flu Sent. vc 21:43 Chest Single View In Process Unspecified. EDMS 22:46 Initial lab(s) drawn, by me, sent to lab. Inserted saline lock: 22 gauge in right lt1 antecubital area, using aseptic technique. 10/20 00:20 No provider procedures requiring assistance completed. IV discontinued, intact, vc bleeding controlled, No redness/swelling at site. Pressure dressing applied. Administered Medications: 10/19 22:03 Drug: TORadol 30 mg Route: IM; Site: left deltoid; vc 23:51 Follow up: Response: Pain is decreased vc Outcome: 23:51 Discharge ordered by MD. pm1 10/20 00:20 Discharged to home via wheelchair, with family. vc Condition: good Discharge instructions given to patient, family, Instructed on discharge instructions, follow up and referral plans. medication usage, Demonstrated understanding of instructions, follow-up care, medications, Prescriptions given X 2. 00:22 Patient left the ED. vc Addendum: 10/21/2019 06:58 Addendum: Other Pt called the department this morning stating that she was seen here 2 a a1 days ago and was told that her prescriptions would be called into [facility] for her since she is legally blind and she went to pick them up and they had not been called in. Prescriptions called in to [facility] at this time via message left on their messaging system. Signatures: Dispatcher [employer] [facility] Sydney Hall, RN RN aa1 Devendra Bahena, KEEPER HEAD KEEPER HEAD pm1 Deanna Bell RN RN ea Gomez, Alice ag3 Barbosa, Caren lt1 Salina Lake RN RN vc Corrections: (The following items were deleted from the chart) 10/19 20:16 20:06 Presenting complaint: Patient states: Pt reports the pain started this AM and is ea located in her midback and moves to her ear ea
--- NOTE | 2019-10-19 23:53 | EDPHYS ---
Physician Documentation [facility] Name: Amara Shipley Age: 84 yrs Sex: Female : 1935 Arrival Date: 10/19/2019 Time: 20:02 Bed 25 Private MD: ED Physician Octavio Marroquin HPI: 10/19 21:09 This 84 yrs old Female presents to ER via Ambulatory with complaints of Back pm1 Pain. 21:09 The patient presents with pain. The symptoms are located in the left trapezius, right pm1 trapezius, left scapular area, right scapular area, left subscapular area and right subscapular area. Onset: The symptoms/episode began/occurred yesterday. Radiates to her left ear. Associated signs and symptoms: Pertinent positives: cough, Pertinent negatives: dysuria, fever, headache, numbness, tingling, vomiting, weakness. The problem was sustained from unknown cause. Severity of symptoms: in the emergency department the symptoms are actually worse. The patient has been recently seen by a physician: the patient's primary care provider, earlier today, with similar presenting complaints, and was referred to a specialist, neurosurgeon for evaluation of back pain. Prescribed pain medications. Historical: - Allergies: 20:17 Celebrex; ea 20:17 Codeine; ea 20:17 Demerol; ea - PMHx: 20:17 Anxiety; CKD; Dementia; GERD; High Cholesterol; ibs; Rheumatic arthritis; Hypertension; ea - Immunization history:: Adult Immunizations up to date. - Coronavirus screen:: The patient has NOT traveled to [place] in the past 14 days. - Social history:: Smoking status: Patient denies any tobacco usage or history of. - Ebola Screening: : No symptoms or risks identified at this time. ROS: 21:09 Constitutional: Negative for fever, chills, and weight loss, Eyes: Negative for injury, pm1 pain, redness, and discharge, ENT: Negative for injury, pain, and discharge, Neck: Negative for injury, pain, and swelling, Cardiovascular: Negative for chest pain, palpitations, and edema. 21:09 Abdomen/GI: Negative for abdominal pain, nausea, vomiting, diarrhea, and constipation. 21:09 : Negative for injury, bleeding, discharge, and swelling, MS/Extremity: Negative for injury and deformity, Skin: Negative for injury, rash, and discoloration, Neuro: Negative for headache, weakness, numbness, tingling, and seizure. 21:09 Respiratory: Positive for cough, Negative for shortness of breath, sputum production, wheezing. 21:09 Back: Positive for of the left trapezius, right trapezius, left scapular area, right scapular area, left subscapular area and right subscapular area, Pain. Exam: 21:09 Constitutional: This is a well developed, well nourished patient who is awake, alert, pm1 and in no acute distress. Head/Face: Normocephalic, atraumatic. Neck: Trachea midline, no thyromegaly or masses palpated, and no cervical lymphadenopathy. Supple, full range of motion without nuchal rigidity, or vertebral point tenderness. No Meningismus. Chest/axilla: Normal chest wall appearance and motion. Nontender with no deformity. No lesions are appreciated. Cardiovascular: Regular rate and rhythm with a normal S1 and S2. No gallops, murmurs, or rubs. Normal PMI, no JVD. No pulse deficits. Respiratory: Lungs have equal breath sounds bilaterally, clear to auscultation and percussion. No rales, rhonchi or wheezes noted. No increased work of breathing, no retractions or nasal flaring. Abdomen/GI: Soft, non-tender, with normal bowel sounds. No distension or tympany. No guarding or rebound. No evidence of tenderness throughout. 21:09 Skin: Warm, dry with normal turgor. Normal color with no rashes, no lesions, and no evidence of cellulitis. MS/ Extremity: Pulses equal, no cyanosis. Neurovascular intact. Full, normal range of motion. 21:09 Back: vertebral tenderness, is not appreciated, muscle spasm, is appreciated in the left trapezius, right trapezius, left scapular area, right scapular area, left subscapular area and right subscapular area. 21:09 Neuro: Orientation: is normal, Mentation: is normal, Motor: is normal, moves all fours, Sensation: is normal, no obvious gross deficits. Vital Signs: 20:15 BP 118 / 94; Pulse 98; Resp 18; Temp 97.6; Pulse Ox 100% ; Weight 66.5 kg; Height 5 ft. ea 1 in. (154.94 cm); 22:00 BP 131 / 88; Pulse 97; Resp 20; Pulse Ox 100% on R/A; vc 23:00 BP 126 / 80; Pulse 88; Resp 18; Pulse Ox 98% on R/A; vc 10/20 00:00 BP 133 / 87; Pulse 92; Resp 20; Pulse Ox 99% on R/A; vc 10/19 20:15 Body Mass Index 27.70 (66.50 kg, 154.94 cm) ea MDM: 10/19 20:18 Patient medically screened. pm1 23:48 Data reviewed: vital signs. Data interpreted: Pulse oximetry: on room air is 100 %. pm1 Interpretation: normal. Counseling: I had a detailed discussion with the patient and/or guardian regarding: the historical points, exam findings, and any diagnostic results supporting the discharge/admit diagnosis, lab results, radiology results, the need for outpatient follow up, to return to the emergency department if symptoms worsen or persist or if there are any questions or concerns that arise at home. 10/19 21:03 Order name: Flu; Complete Time: 22:04 pm1 10/19 21:03 Order name: Strep; Complete Time: 22:04 pm1 10/19 21:59 Order name: Throat Culture EDMS 10/19 22:29 Order name: CBC with Diff; Complete Time: 23:35 pm1 10/19 22:29 Order name: CMP; Complete Time: 23:19 pm1 10/19 23:39 Order name: Manual Differential; Complete Time: 23:35 EDMS 10/19 21:43 Order name: Chest Single View; Complete Time: 23:35 EDMS 10/19 22:29 Order name: IV Saline Lock; Complete Time: 22:46 pm1 Administered Medications: 22:03 Drug: TORadol 30 mg Route: IM; Site: left deltoid; vc 23:51 Follow up: Response: Pain is decreased vc Disposition: 10/20 11:07 Co-signature as Attending Physician, Octavio Marroquin MD I agree with the assessment and tw4 plan of care. Disposition: 10/19/19 23:51 Discharged to Home. Impression: Pneumonia, unspecified organism, Thoracic back pain. - Condition is Stable. - Discharge Instructions: Back Pain, Adult, Community-Acquired Pneumonia, Adult. - Prescriptions for Tramadol 50 mg Oral Tablet - take 1 tablet by ORAL route every 8 hours As needed as needed; 12 tablet. Zithromax Z- Jimy 250 mg Oral Tablet - take 1 tablet by ORAL route as directed for 5 days Day 1 - take two (2) tablets one time. Day 2, 3, 4 , 5 take one (1) tablet once daily.; 6 tablet. - Medication Reconciliation Form, Thank You Letter, Antibiotic Education, Prescription Opioid Use form. - Follow up: Emergency Department; When: As needed; Reason: Worsening of condition. Follow up: Private Physician; When: 2 - 3 days; Reason: Recheck today's complaints, Continuance of care, Re-evaluation by your physician. - Problem is new. - Symptoms have improved. Signatures: Dispatcher [employer] [facility] Deevndra Bahena, BATTERY TECHNICIAN BATTERY TECHNICIAN pm1 Deanna Bell, RN RN Octavio Perry MD MD tw4 Salina Lake RN RN vc Corrections: (The following items were deleted from the chart) 10/19 21:43 21:04 Chest Pa And Lat (2 Views)+[email or web address] ordered. [facility] 10/20 00:22 10/19 23:51 10/19/2019 23:51 Discharged to Home. Impression: Pneumonia, unspecified vc organism; Thoracic back pain. Condition is Stable. Forms are Medication Reconciliation Form, Thank You Letter, Antibiotic Education, Prescription Opioid Use. Follow up: Emergency Department; When: As needed; Reason: Worsening of condition. Follow up: Private Physician; When: 2 - 3 days; Reason: Recheck today's complaints, Continuance of care, Re-evaluation by your physician. Problem is new. Symptoms have improved. pm1
[2019-10-19] MEDS ORDERED: CEFTRIAXONE/SWI 1gm 1 GM/10 ML SYR ONE (23:57)
[2019-10-19] MEDS ORDERED: TRAMADOL HCL 50 MG TAB ONE (23:59)
[2019-10-20 02:03] VITALS: TEMP 97.6
[2019-10-20 02:07] VITALS: BP 133/87; O2SAT 99
== END 2019-10-20 00:22 | disposition home or self-care (01) ==
LOC: ER 19:58
DX: J18.9 Pneumonia, unspecified organism (principal); I12.9 Hypertensive chronic kidney disease with stage 1 through stage 4 chronic kidney disease, or unspecified chronic kidney disease; N18.9 Chronic kidney disease, unspecified; Z88.5 Allergy status to narcotic agent; Z88.8 Allergy status to other drugs, medicaments and biological substances
CPT/HCPCS: 87070; 85025; 36415; 87081; 80053; 87804 ×2; 71045; 96372; 99284; J0696

== ENCOUNTER 2020-04-04 19:52 | Emergency (ER) | payer OTHER ==
--- OUTSIDE RECORDS SUMMARY | 2020-04-04 19:55 | XMS REPORT | Continuity of Care Document ---
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 Mem[facility] a with with l diarrhea diarrhea Outpat i ent Clinics Dementia Dementia Problem [facility] without [facility] - behavioral behavioral Me moria disturbanc disturbanc l e, e, Outpati unspecifie unspecifie en t d dementia d dementia Cl inics type type Osteoarthr Osteoarthr Problem Active [facility] itis, itis, [facility] - unspecifie unspecifie Me moria d d l osteoarthr osteoarthr Ou tpati itis type, itis type, en t unspecifie unspecifie Cl inics d site d site Mixed Mixed Problem Active [facility]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 Brunilda kes - urge urge Memoria urinary urinary l incontinen incontinen Ou tpati ce ce ent Clinics Rheumatoid Rheumatoid Problem Active [facility] arthritis arthritis Luke [facility] - involving involving Alejandro candace multiple multiple l sites, sites, Outpati unspecifie unspecifie en t d d Clinics rheumatoid rheumatoid factor factor presence presence Fibromyalg Fibromyalg Problem Active [facility] ia ia [facility] Sinus Sinus Problem Active [facility] problem problem [facility] Kidney Kidney Problem Active [facility] disease disease [facility] Allergic Allergic Problem [facility]initis [facility] Anxiety Anxiety Problem Active [facility] Essential Essential Problem Active [facility] hypertensi hypertensi Brunilda kes - on on [facility] Current Current Problem Active [facility] moderate moderate [facility] - 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, disorder, ent unspecifie unspecifie Cl inics d whether d whether recurrent recurrent 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 [facility] Memory Memory Problem Active [facility] problem problem [facility] Sciatica Sciatica Problem Active [facility] of left of left [facility] - side side Memoria l [facility] Sciatica, Sciatica, Problem Active [facility] right side right side Brunilda kes - Memoria l [facility] Bladder Bladder Problem Active [facility] problem problem [facility] Seasonal Seasonal Problem Active [facility] allergies allergies [facility] - [facility] Primary Primary Problem Active [facility] osteoarthr osteoarthr Brunilda kes - itis of itis of Memoria both hips both hips l [facility] Pain in Pain in Problem Active [facility] right hip right hip Luke s - [facility] Clinics Hoarseness Hoarseness Problem Active [facility] of voice of voice [facility] Pain in Pain in Problem Active [facility] left hip left hip [facility] 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 kes - on of both on of both Me moria eyes, eyes, l unspecifie unspecifie Ou tpati d type d type ent Clinics Depression Depression Diagnosis Active [facility] with with [facility] - anxiety anxiety Memoria l [facility] Rash and Rash and Problem Active [facility] nonspecifi nonspecifi Brunilda kes - c skin c skin Memoria eruption eruption l [facility] Clinics At risk At risk Problem Active [facility] for for [facility] - falling falling Memoria l [facility] Insomnia, Insomnia, Problem Active [facility] unspecifie unspecifie Brunilda kes - d type d type Memoria [facility] Clinics Shortness Shortness Problem Active [facility] of breath of breath Luke s - [facility] Tachycardi Tachycardi Problem Active [facility] Forgetfuln Forgetfuln Problem Active [facility] ess ess [facility] Chronic Chronic Problem Active [facility] fatigue fatigue [facility] - [facility] Cough Cough Problem Active [facility] Skin Skin Problem Active [facility] lesions lesions [facility] Dizziness Dizziness Problem Active [facility] Allergies, Adverse Reactions, Alerts Allergy Allergy Status Severity Reaction(s) Onset Inactive Treating Comm ents Source Name Type Date Date Clinician Demerol Adverse Active Info Not [facility] Reaction Available [facility] Celebrex Adverse Active Info Not [facility] Reaction Available [facility] Medications Ordered Filled Start Stop Current Ordering Indication Dosage Frequency Signature Comments Components Source Medication Medication Date Date Medication? Clinician (SIG) Name Name Fluticasone Fluticasone Yes Daylin [address] [facility] Propionate Propionate 5-27 Millender in each [facility] - 00:00: nostril Memoria 00 [facility] Albuterol Albuterol Yes Daylin [address] [facility] Sulfate HFA Sulfate HFA 5-27 Millender needed [facility] - 00:00: Memoria 00 [facility] Ketoconazol Ketoconazol 2020- Yes Daylin [address] [facility] e e 5-27 06-26 Millender applicatio Cody es - 00:00: 00:00 n to Memoria 00 :00 affected [facility] Tessalon Tessalon 2020- Yes Daylin [address] [facility] Perles Perles 5-27 06-06 Millender as needed [facility]ukes - 00:00: 00:00 for cough Memoria 00 :00 [facility] Meclizine Meclizine Yes Daylin [address] [facility] HCl HCl 2-14 Millender as needed [facility]ukes - 00:00: for Memoria 00 dizziness l [facility] Ventolin Ventolin Yes Daylin [address] [facility] HFA HFA 1-03 Millender needed for Luke s - 00:00: cough/whe Memoria 00 ezing [facility] Duloxetine Duloxetine 2018-09 Yes Daylin [address] [facility] HCl HCl 0-28 Millender (take with Luke s - 00:00: duloxetine Memoria 00 60 mg) [facility] Omeprazole Omeprazole Yes Daylin [address] [facility] Millender [facility] Duloxetine Duloxetine Yes Daylin [address] [facility] HCl HCl Millender (take with Luke s - duloxetine Memoria 30 mg) l Outpati ent Clinics Gabapentin Gabapentin Yes Daylin [address] [facility] Galantamine Galantamine Yes Daylin [address] [facility] Hydrobromid Hydrobromid Millender with meals [facility] e e [facility] Dicyclomine Dicyclomine Yes Daylin [address] [facility] HCl HCl Millender [facility] Propranolol Propranolol Yes Daylin [address] [facility] HCl HCl Millender on an [facility]ukes - empty Memoria stomach l Outpati ent Clinics Hydroxychlo Hydroxychlo Yes Daylin [address] [facility] roquine roquine Millender with food [facility] - Sulfate Sulfate or milk Memori a l Outpati ent Clinics Probiotic Probiotic Yes Daylin as [facility] Digestive Digestive Millender directed [facility] - Support Support Memoria l Outpati ent Clinics PredniSONE PredniSONE Yes Daylin [address] [facility] Leflunomide Leflunomide Yes Daylin [address] [facility] [place]ender [facility] Diclofenac Diclofenac Yes Daylin [address] Sodium Sodium Millender applicatio [facility] - n [facility] Trazodone Trazodone Yes Daylin [address] [facility] HCl HCl Millender at bedtime Luke s - as needed Memoria l Outpati ent Clinics Procedures This patient has no known procedures. Encounters Start End Encounter Admission Attending Care Care Encounter Source Date/Time Date/Time Type Type Clinicians Facility Department ID 2020-01-27 2020-01-27 Outpatient Steven Chowdary [id number] [facility] 22:55:00 22:55:00 [facility] Medicine l Medicine Outpati ent Clinics 2020-01-27 2020-01-27 Outpatient Steven Chowdary [id number] [facility] 15:00:00 15:00:00 [facility] Medicine l Medicine Outpati ent Clinics 2020-01-04 2020-01-04 Outpatient Steven Chowdary [id number] [facility] 10:14:00 10:14:00 [facility] Medicine Medicine Outpati ent Clinics 2019-12-11 2019-12-11 [facility] [id number] 14:37:00 14:37:00 t [facility] Medicine Outpati ent Clinics 2019-12-09 2019-12-09 [facility] [id number] 10:20:00 10:20:00 [facility] Medicine Outpati ent Clinics 2019-12-08 2019-12-08 [facility] [id number] 16:05:00 16:05:00 t [facility] Medicine Medicine Outpati ent Clinics 2019-12-07 2019-12-07 [facility] [id number] 14:51:00 14:51:00 [facility] Medicine Outpati ent Clinics 2019-11-30 2019-11-30 [facility] [id number] 13:24:00 13:24:00 [facility] Medicine Outpati ent Clinics 2019-11-25 2019-11-25 [facility] [id number] 10:20:00 10:20:00 [facility] Medicine Outpati ent Clinics 2019-11-24 2019-11-24 [facility] [id number] 16:24:00 16:24:00 [facility] Medicine Outpati ent Clinics 2019-11-18 2019-11-18 [facility] [id number] 14:29:00 14:29:00 t [facility] Medicine Outpati ent Clinics 2019-11-04 2019-11-04 [facility] [id number] 08:52:00 08:52:00 [facility] Medicine Outpati ent Clinics 2019-10-22 2019-10-22 [facility] [id number] 09:08:00 09:08:00 t [facility] Medicine Outpati ent Clinics 2019-10-15 2019-10-15 [facility] [id number] [facility] 10:15:00 10:15:[address] [facility] Medicine Outpati ent Clinics 2019-09-24 2019-09-24 [facility] [id number] 23:35:00 23:35:00 t [facility] Medicine Outpati ent Clinics 2019-09-24 2019-09-24 [facility] [id number] [facility] 13:45:00 13:45:00 t [facility] Medicine Outpati ent Clinics 2019-09-04 2019-09-04 [facility] [id number] 13:40:00 13:40:00 t [facility] Medicine Outpati ent Clinics 2019-06-29 2019-06-29 [facility] [id number] [facility] 23:55:00 23:55:00 t [facility] Medicine Outpati ent Clinics 2019-06-29 2019-06-29 [facility] [id number] 11:20:00 11:20:00 t [facility] Medicine Outpati ent Clinics 2019-05-27 2019-05-27 [facility] [id number] [facility] 11:00:00 11:00:[address] [facility] - [address] [facility] Medicine Medicine Outpati ent Clinics 2019-05-18 2019-05-18 [facility] [id number] [facility] 10:07:00 10:07:[address] [facility] - [address] [facility] Medicine Medicine Outpati ent Clinics 2019-03-17 2019-03-17 [facility] [id number] 11:20:00 11:20:[address] [facility] - [address] [facility] Medicine Medicine Outpati ent Clinics 2019-03-16 2019-03-16 [facility] [id number] 15:08:00 15:08:00 t [facility] [place] [facility] Medicine Outpati ent Clinics 2019-03-09 2019-03-09 [facility] [id number] 08:38:00 08:38:00 t [employer] [facility] Medicine Outpati ent Clinics 2019-02-12 2019-02-12 [facility] [id number] 15:40:00 15:40:00 t [employer] [facility] Medicine Outpati ent Clinics 2019-02-12 2019-02-12 [facility] [id number] 10:27:00 10:27:00 t [employer] [facility] Medicine Outpati ent Clinics 2019-02-11 2019-02-11 [facility] [id number] 11:20:00 11:20:00 t [employer] [facility] Outpati ent Clinics Results This patient has no known results.
--- OUTSIDE RECORDS SUMMARY | 2020-04-04 19:55 | XMS REPORT ---
:1935 Author Organization e[employer] Care Team Providers Name Role Phone Daylin Martinez Provider Role Unavailable Allergies, Adverse Reactions, Alerts Substance Reaction Event Type Demerol Info Not Available Drug Allergy Celebrex Info Not Available Drug Allergy Problems Problem Type Condition Code Onset Dates Condition Statu s Problem Dementia without behavioral F03.90 Active disturbance, unspecified dementia type Problem Sciatica, right side M54.31 Active Problem Gastroesophageal reflux disease, K21.9 Active esophagitis presence not specified Problem Mixed stress and urge urinary N39.46 Active incontinence Problem Osteoarthritis, unspecified M19.90 Active osteoarthritis type, unspecified site Problem Rheumatoid arthritis involving M06.9 Active multiple sites, unspecified rheumatoid factor presence Assessment Depression with anxiety F41.8 Acti ve Problem 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 disorder, unspecified whether recurrent Problem Allergic rhinitis J30.9 Active Problem Essential hypertension I10 Activ e Problem Anxiety F41.9 Active Problem Rash and nonspecific skin eruption R21 Active Problem Hoarseness of voice R49.0 Active Problem Memory problem R41.3 Active Problem Pain in left hip M25.552 Active Problem Depression with anxiety F41.8 Acti ve Problem Pain in right hip M25.551 Active Problem Skin lesions L98.9 Active Problem Cough R05 Active Problem Kidney disease N28.9 Active Problem Irritable bowel syndrome with K58.0 Active diarrhea Assessment Seasonal allergies J30.2 Active Problem Dizziness R42 Active Problem Fibromyalgia M79.7 Active Assessment Dizziness R42 Active Problem Shortness of breath R06.02 Active Assessment Rheumatoid arthritis involving M06.9 Active multiple sites, unspecified rheumatoid factor presence Problem Tachycardia R00.0 Active Assessment Insomnia, unspecified type G47.00 A ctive Problem Forgetfulness R68.89 Active Assessment Skin lesions L98.9 Active Problem Chronic fatigue R53.82 Active Problem Bladder problem N32.9 Active Problem Reflux K21.9 Active Problem Sciatica of left side M54.32 Active Problem Seasonal allergies J30.2 Active Assessment Essential hypertension I10 Activ e Problem Sinus problem J34.9 Active Problem Irritable bowel K58.9 Active Assessment Cough R05 Active Problem Insomnia, unspecified type G47.00 A ctive Assessment Shortness of breath R06.02 Active Problem At risk for falling Z91.81 Active Problem 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 Active Problem Macular degeneration of both eyes, H35.30 Active unspecified type Medications Medication Code Code Instructions Start End Status Dosage System Date Date Propranolol HCl ND 12739792166 20 MG Orally Active 1 tablet on Once a day an empty stomach Fluticasone ND 62167951811 50 MCG/ACT January 26, Active 2 spr ays in Propionate Nasally Once a 2020 each n ostril day Duloxetine HCl ND 96793513257 60 MG Orally Active 1 capsule Once daily in (take with am duloxetine 30 mg) Leflunomide ND 40665076182 20 MG Orally Active 1 t ablet Once a day Galantamine ND 74357933843 4 MG Orally Active 1 ta blet Hydrobromide Twice a day with me als Tessalfrank Perles ND 65355463197 100 MG Orally January 26January Active 1 capsule as Three times a 2020 06, needed for day 2019 cough PredniSONE ND 56393849275 5 MG Orally Active 1 tab let Once a day Meclizine HCl ND 85077665486 25 MG Orally Oct 16, Active 1 tablet as Twice daily 2020 needed for dizziness Dicyclomine HCl ND 40992209448 20 MG Orally Active 1 tablet Four times a day Diclofenac Sodium ND 36176458769 1 % Active 1 Transdermal application Every day prn Omeprazole ND 17908456055 40 MG Orally Active 1 ca psule Once a day Gabapentin ND 34196555686 100 MG Orally Active 1 c apsule Three times a day Albuterol Sulfate ND 34298034279 108 (90 Base) January 26, Acti ve 2 puffs as HFA MCG/ACT 2019 needed Inhalation every 4-6 hrs Ketoconazole ND 11098322199 2 % Externally January 26January Active 1 Once a day 2019, application 2020 to affected areas Hydroxychloroquine ND 24297401401 200 MG Orally Act will 1 tablet Sulfate Once a day with food or milk Ventolin HFA ND 65449299676 108 (90 Base) Sep 04, Active 2 puffs as MCG/ACT 2019 needed for Inhalation cough/wheezi every 6 hrs ng Trazodone HCl [facility] 18307957262 50 MG Orally Active 1 tablet at Once a day bedtime as needed Duloxetine HCl [facility] 37415378151 30 MG Orally Jun 29, Active 1 capsule Once a day in 2019 (take with am duloxetine 60 mg) Probiotic Digestive [facility] 62740135557 - Orally Active as directed Support Results No Known Results Summary Purpose eClinicalWorks Submission
--- OUTSIDE RECORDS SUMMARY | 2020-04-04 19:55 | XMS REPORT ---
[...] bowel syndrome with K58.0 Active diarrhea Problem Dizziness R42 Active Problem Fibromyalgia M79.7 Active Problem Shortness of breath R06.02 Active Problem Tachycardia R00.0 Active Problem Forgetfulness R68.89 Active Problem Chronic fatigue R53.82 Active Problem Bladder problem N32.9 Active Problem Reflux K21.9 Active Problem Sciatica of left side M54.32 Active Problem Seasonal allergies J30.2 Active Assessment Depression with anxiety F41.8 Acti ve Problem Sinus problem J34.9 Active Problem Irritable bowel K58.9 Active Problem Insomnia, unspecified type G47.00 A ctive Problem At risk for falling Z91.81 Active Problem 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
--- OUTSIDE RECORDS SUMMARY | 2020-04-04 19:55 | XMS REPORT ---
:1936 Author Organization eClinicalWorks Care Team Providers Name Role Phone Daylin Martinez Provider Role Unavailable Allergies No Known Allergies Problems Problem Type Condition Code Onset Dates Condition Statu s Problem Sciatica of left side M54.32 Active Problem Bladder problem N32.9 Active Problem Dementia without behavioral F03.90 Active disturbance, unspecified dementia type Problem Sciatica, right side M54.31 Active Problem Mixed stress and urge urinary N39.46 Active incontinence Problem Rheumatoid arthritis involving M06.9 Active multiple sites, unspecified rheumatoid factor presence Problem 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 disorder, unspecified whether recurrent Problem Gastroesophageal reflux disease, K21.9 Active esophagitis presence not specified Problem Osteoarthritis, unspecified M19.90 Active osteoarthritis type, unspecified site Problem Allergic rhinitis J30.9 Active Problem Insomnia, unspecified type G47.00 A ctive Problem At risk for falling Z91.81 Active Problem Essential hypertension I10 Activ e Problem Hoarseness of voice R49.0 Active Problem Pain in right hip M25.551 Active Problem Pain in left hip M25.552 Active Problem Forgetfulness R68.89 Active Problem Chronic fatigue R53.82 Active Problem Memory problem R41.3 Active Problem Fibromyalgia M79.7 Active Problem Cough R05 Active Problem Anxiety F41.9 Active Problem Rash and nonspecific skin eruption R21 Active Problem Depression with anxiety F41.8 Acti ve Problem Shortness of breath R06.02 Active Problem Tachycardia R00.0 Active Problem Sinus problem J34.9 Active Problem Irritable bowel K58.9 Active Problem Irritable bowel syndrome with K58.0 Active diarrhea Problem Kidney disease N28.9 Active Problem 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
--- NOTE | 2020-04-04 20:59 | ER ---
Nurse's Notes [facility] Name: Amara Shipley Age: 85 yrs Sex: Female : 1935 Arrival Date: 04/04/2020 Time: 19:55 Bed 2 Private MD: Diagnosis: Other otitis externa, left ear Presentation: 04/04 20:32 Chief complaint: Patient states: L ear pain and drainage since yesterday. Coronavirus ca1 screen: Client denies travel out of the [place] in the last 14 days. At this time, the client does not indicate any symptoms associated with coronavirus-19. Ebola Screen: Patient negative for fever greater than or equal to 101.5 degrees Fahrenheit, and additional compatible Ebola Virus Disease symptoms Patient denies exposure to infectious person. Patient denies travel to an Ebola-affected area in the 21 days before illness onset. No symptoms or risks identified at this time. Initial Sepsis Screen: Does the patient meet any 2 criteria? No. Patient's initial sepsis screen is negative. Does the patient have a suspected source of infection? No. Patient's initial sepsis screen is negative. Risk Assessment: Do you want to hurt yourself or someone else? Patient reports no desire to harm self or others. Onset of symptoms was April 04, 2020. 20:32 Method Of Arrival: Wheelchair ca1 20:32 Acuity: MAIDA 4 ca1 Historical: - Allergies: 20:34 Celebrex; ca1 20:34 Demerol; ca1 20:34 Codeine; ca1 - PMHx: 20:34 Anxiety; CKD; Dementia; GERD; High Cholesterol; Hypertension; ibs; Rheumatic arthritis; ca1 - Immunization history:: Adult Immunizations up to date. - Social history:: Smoking status: Patient denies any tobacco usage or history of. - Family history:: not pertinent. - Hospitalizations: : No recent hospitalization is reported. Screenin:47 Abuse screen: Denies threats or abuse. Denies injuries from another. Nutritional mg2 screening: No deficits noted. Tuberculosis screening: No symptoms or risk factors identified. Fall Risk None identified. Assessment: 20:46 General: Appears in no apparent distress. comfortable, Behavior is calm, cooperative. mg2 Pain: Complains of pain in left ear. Neuro: Level of Consciousness is awake, alert, obeys commands, Oriented to person, place, time, situation. Cardiovascular: Capillary refill < 3 seconds Patient's skin is warm and dry. Respiratory: Airway is patent Respiratory effort is even, unlabored, Respiratory pattern is regular, symmetrical. GI: No signs and/or symptoms were reported involving the gastrointestinal system. : No signs and/or symptoms were reported regarding the genitourinary system. EENT: Reports pain in left ear. Derm: Skin is intact, is healthy with good turgor, Skin is pink, warm \T\ dry. normal. Musculoskeletal: Circulation, motion, and sensation intact. Capillary refill < 3 seconds. Vital Signs: 20:32 BP 133 / 70; Pulse 99; Resp 15 S; Temp 99.1(O); Pulse Ox 96% on R/A; Weight 56.7 kg ca1 (R); Height 5 ft. (152.40 cm); 20:32 Body Mass Index 24.41 (56.70 kg, 152.40 cm) ca1 ED Course: 19:55 Patient arrived in ED. ag3 20:33 Triage completed. ca1 20:34 Arm band placed on right wrist. ca1 20:43 Hector Gan MD is Attending Physician. rn 20:46 Roberto Du RN is Primary Nurse. mg2 20:47 Patient has correct armband on for positive identification. mg2 20:47 No provider procedures requiring assistance completed. Patient did not have IV access mg2 during this emergency room visit. Administered Medications: 20:54 Not Given (Other Intervention Used): CIPRODEX 4 drops Otic in left ear once sg 20:58 Drug: Owwylyed-Knlohattj-PI Drops 1 appful Route: Otic; Site: left ear; mg2 21:11 Follow up: Response: No adverse reaction; Medication administered at discharge. mg2 21:12 Follow up: Response: No adverse reaction; Medication administered at discharge. mg2 21:05 Drug: Tylenol 650 mg Route: PO; mg2 21:11 Follow up: Response: No adverse reaction; Medication administered at discharge. mg2 Outcome: 20:59 Discharge ordered by . rn 21:12 Discharged to home via wheelchair. mg2 21:12 Condition: good 21:12 Discharge instructions given to patient, Instructed on discharge instructions, follow up and referral plans. medication usage, Demonstrated understanding of instructions, follow-up care, medications, Prescriptions given X 1. 21:13 Patient left the ED. mg2 Signatures: Hector Gan MD MD rn Roberto Du RN RN mg2 Grace Bullock ag3 Alyson Sanderson RN RN ca1 Donald Nelson RN sg
--- NOTE | 2020-04-04 20:59 | EDPHYS ---
Physician Documentation [facility] Name: Amara Shipley Age: 85 yrs Sex: Female : 1935 Arrival Date: 04/04/2020 Time: 19:55 Bed 2 Private MD: ED Physician Hector Gan HPI: 04/04 20:56 This 85 yrs old Female presents to ER via Wheelchair with complaints of Ear rn Pain. 20:56 The patient presents with pain, swelling. The complaints affect the left ear. Onset: rn The symptoms/episode began/occurred yesterday. Modifying factors: The symptoms are alleviated by nothing, the symptoms are aggravated by pulling on ears, touching. Severity of symptoms: At their worst the symptoms were moderate in the emergency department the symptoms are unchanged. The patient has not experienced similar symptoms in the past. The patient has not recently seen a physician. Denies trauma or recent swimming, reports left ear pain since yesterday, no fever, + drainage. No headache.. Historical: - Allergies: 20:34 Celebrex; ca1 20:34 Demerol; ca1 20:34 Codeine; ca1 - PMHx: 20:34 Anxiety; CKD; Dementia; GERD; High Cholesterol; Hypertension; ibs; Rheumatic arthritis; ca1 - Immunization history:: Adult Immunizations up to date. - Social history:: Smoking status: Patient denies any tobacco usage or history of. - Family history:: not pertinent. - Hospitalizations: : No recent hospitalization is reported. ROS: 20:56 Constitutional: Negative for fever, chills, and weight loss, ENT: + left ear pain and rn drainage Neuro: Negative for headache, weakness, numbness, tingling, and seizure. Exam: 20:56 Constitutional: This is a well developed, well nourished patient who is awake, alert, rn and in no acute distress. Head/Face: Normocephalic, atraumatic. ENT: + left ear with swollen canal, unable to visualize TM, + mild yellow drainage. Vital Signs: 20:32 BP 133 / 70; Pulse 99; Resp 15 S; Temp 99.1(O); Pulse Ox 96% on R/A; Weight 56.7 kg ca1 (R); Height 5 ft. (152.40 cm); 20:32 Body Mass Index 24.41 (56.70 kg, 152.40 cm) ca1 MDM: 20:43 Patient medically screened. rn 20:56 Differential diagnosis: otitis externa, acute otalgia. Data reviewed: vital signs, rn nurses notes, and as a result, I will discharge patient. Counseling: I had a detailed discussion with the patient and/or guardian regarding: the historical points, exam findings, and any diagnostic results supporting the discharge/admit diagnosis, the need for outpatient follow up, to return to the emergency department if symptoms worsen or persist or if there are any questions or concerns that arise at home. Special discussion: I discussed with the patient/guardian in detail that at this point there is no indication for admission to the hospital. It is understood, however, that if the symptoms persist or worsen the patient needs to return immediately for re-evaluation. ED course: Pt given abx drops here given late visit time and closed pharmacies, will take home and take as prescribed.. Administered Medications: 20:54 Not Given (Other Intervention Used): CIPRODEX 4 drops Otic in left ear once sg 20:58 Drug: Snsdjiwl-Drbdpcxab-RP Drops 1 appful Route: Otic; Site: left ear; mg2 21:11 Follow up: Response: No adverse reaction; Medication administered at discharge. mg2 21:12 Follow up: Response: No adverse reaction; Medication administered at discharge. mg2 21:05 Drug: Tylenol 650 mg Route: PO; mg2 21:11 Follow up: Response: No adverse reaction; Medication administered at discharge. mg2 Disposition: 04/04/20 20:59 Discharged to Home. Impression: Other otitis externa, left ear. - Condition is Stable. - Discharge Instructions: Ear Drops, Adult, Otitis Externa. - Prescriptions for neomycin- polymyxin-HC 3.5-10,000-1 mg/mL-unit/mL-% Otic solution - instill 4 drop by OTIC route 4 times per day for 10 days; 1 bottle. - Medication Reconciliation Form, Thank You Letter, Antibiotic Education, Prescription Opioid Use form. - Follow up: Private Physician; When: As needed; Reason: Recheck today's complaints, Re-evaluation by your physician. - Problem is new. - Symptoms are unchanged. Signatures: Donald Nelson RN RN sg Hector Gan MD MD rn Gardose, Michele, RN RN mg2 Alyson Sanderson RN RN ca1 Corrections: (The following items were deleted from the chart) 21:13 20:59 04/04/2020 20:59 Discharged to Home. Impression: Other otitis externa, left ear. mg2 Condition is Stable. Prescriptions for vshzkgbt-lbynuisxc-WJ 3.5-10,000-1 mg/mL-unit/mL-% Otic solution - instill 4 drop by OTIC route 4 times per day for 10 days; 1 bottle. and Forms are Medication Reconciliation Form, Thank You Letter, Antibiotic Education, Prescription Opioid Use. Follow up: Private Physician; When: As needed; Reason: Recheck today's complaints, Re-evaluation by your physician. Problem is new. Symptoms are unchanged. rn
[2020-04-04] MEDS ORDERED: NEOMY/POLY/HC 1% OTIC DROPS ONE (21:04)
[2020-04-04] MEDS ORDERED: ACETAMINOPHEN 325 MG TABLET ONE (21:10)
[2020-04-04 21:31] VITALS: BP 133/70; TEMP 99.1; O2SAT 96
== END 2020-04-04 21:13 | disposition home or self-care (01) ==
LOC: ER 19:52
DX: H60.8X2 Other otitis externa, left ear (principal); I12.9 Hypertensive chronic kidney disease with stage 1 through stage 4 chronic kidney disease, or unspecified chronic kidney disease; N18.9 Chronic kidney disease, unspecified; F03.90 Unspecified dementia, unspecified severity, without behavioral disturbance, psychotic disturbance, mood disturbance, and anxiety; Z88.5 Allergy status to narcotic agent; Z88.8 Allergy status to other drugs, medicaments and biological substances
CPT/HCPCS: 99283

== ENCOUNTER 2021-11-02 11:27 | Emergency (ER) | payer OTHER ==
[2021-11-02] MEDS ORDERED: NA CHLORIDE 0.9% 1,000 ML ONE (13:22)
[2021-11-02 13:33] LABS: Absolute Lymphocytes (CBC) 1.9 K/uL (0.7-4.9); Hematocrit 38.8 % (36.0-45.0); Lymphocytes % 19.3 % (15.3-44.8); MPV 7.9 fL (7.6-11.3); RBC Red Blood Cell Count 4.32 M/uL (3.86-4.86)
[2021-11-02 13:36] LABS: Protime INR 0.92
[2021-11-02 14:00] LABS: BUN Blood Urea Nitrogen 20 mg/dL (7-18); Bicarbonate 32 mmol/L (21-32); Glucose Level 92 mg/dL (74-106); Potassium 4.2 mmol/L (3.5-5.1); Sodium Level 137 mmol/L (136-145)
--- NOTE | 2021-11-02 14:08 | RAD REPORT ---
EXAM DESCRIPTION: CT - Head Brain Wo Cont - 11/02/2021 1:53 pm CLINICAL HISTORY: DIZZINESS COMPARISON: Soft Tissue Neck W/Contr dated 06/20/2021 TECHNIQUE: Axial 5 mm thick images of the head were obtained without IV contrast. All CT scans are performed using dose optimization technique as appropriate and may include automated exposure control or mA/KV adjustment according to patient size. FINDINGS: No intracranial hemorrhage, mass, edema or shift of mid-line structures. No acute infarcti on changes seen. No cortical edema or sulcal effacement. Patient has moderate severity atrophy with v entricles in proportion. Advanced cerebral white matter chronic ischemic changes are present. Arteria l tree calcifications are present. Mastoid air cells and visualized portions of the paranasal sinuses are clear of acute disease. No acute bony findings. IMPRESSION: No acute intracranial abnormality identified. Moderate severity atrophy advanced chronic ischemic changes are present.
--- NOTE | 2021-11-02 14:14 | RAD REPORT ---
EXAM DESCRIPTION: CT - Abdomen Pelvis W Contrast - 11/02/2021 1:53 pm CLINICAL HISTORY: ABD PAIN COMPARISON: Abdomen Pelvis W Contrast dated 03/26/2018 TECHNIQUE: Biphasic, helical CT imaging of the abdomen and pelvis was performed following 100 ml non -ionic IV contrast. No oral contrast administered. All CT scans are performed using dose optimization technique as appropriate and may include automated exposure control or mA/KV adjustment according to patient size. FINDINGS: Fibrotic stranding seen in each lung base. Stranding is more prominent than 2018. A minima l interstitial infiltrate is possible. Progressive fibrosis can also have this pattern. No consolidat ion, mass or pericardial effusion. No cardiomegaly or pericardial effusion. No focal liver lesion. Liver has a slightly nodular capsule contour but no focal parenchymal lesions. No portal vein abnormality. Gallbladder is absent. Biliary tree is prominent but not outside of norm al range for post cholecystectomy status. No pancreatic mass or peripancreatic acute finding. No splenic abnormality. Symmetric renal function is seen with no hydronephrosis or suspicious renal mass. No pyelonephritis o r acute parenchymal process. No bladder abnormalities. No adrenal abnormalities. Uterus is absent. Ov giulia are atrophic with no ovarian or adnexal RAIL TRANSIT OPERATOR finding. Gastric lumen is empty. This accentuates gastric wall thickness. No asymmetric mass or abnormal enhan cement seen. No dilated large or small bowel. Moderate stool volume seen in the transverse and right side colon. No primary colon process. Appendix is unremarkable. Enteritis is still possible. No free air, free fluid or pneumatosis. No focal inflammatory stranding seen. No mass or bulky lympha denopathy. Minimal left inguinal hernia is present. No omental thickening. No suspicious bony findings. Advanced degenerative changes are present. IMPRESSION: No obstruction, free air or surgically emergent finding identifiable. No acute GI findings are evident. Enteritis is still possible. No acute or RAIL TRANSIT OPERATOR process. Interstitial stranding in the right lung base is more prominent than 2018. Minimal interstitial infil trate is possible. This could be progressive fibrosis. No associated mass or parenchymal consolidatio n.
[2021-11-02 14:39] LABS: Urine Blood Negative (Negative); Urine Glucose Negative (Negative); Urine Protein Negative (Negative)
--- NOTE | 2021-11-02 14:40 | ER ---
Nurse's Notes [facility] Name: Amara Shipley Age: 86 yrs Sex: Female : 1935 Arrival Date: 11/02/2021 Time: 11:28 Bed 15 Private MD: Diagnosis: Weakness;Abdominal pain, unspecified Presentation: 11/02 11:42 Chief complaint: Patient states: Dizziness for at least one year. RUQ abd pain that ll1 radiates into back for [address] weeks[address] Sent in by Dr. Sabillon personnel for eval. No fever, No N/V/D. Coronavirus screen: Vaccine status: Patient reports being unvaccinated. Client denies travel out of the [place] in the last 14 days. fatigue, At this time, the client does not indicate any symptoms associated with coronavirus-19. Ebola Screen: Patient denies travel to an Ebola-affected area in the 21 days before illness onset. Initial Sepsis Screen: Does the patient meet any 2 criteria? No. Patient's initial sepsis screen is negative. Does the patient have a suspected source of infection? Yes: Acute abdominal pain. Risk Assessment: Do you want to hurt yourself or someone else? Patient reports no desire to harm self or others. Onset of symptoms was October 22, 2021. 11:42 Method Of Arrival: Wheelchair ll1 11:42 Acuity: MAIDA 3 ll1 Triage Assessment: 11:45 General: Appears in no apparent distress. Behavior is calm, cooperative, appropriate ll1 for age. Pain: Complains of pain in RUQ Quality of pain is described as aching. Neuro: Reports dizziness. Cardiovascular: No deficits noted. Respiratory: No deficits noted. GI: Reports upper abdominal pain. Historical: - Allergies: 11:44 Codeine; ll1 11:44 Demerol; ll1 11:44 Celebrex; ll1 - PMHx: 11:44 High Cholesterol; Anxiety; Rheumatic arthritis; ibs; GERD; Dementia; CKD; Hypertension; ll1 - PSHx: 11:44 None; ll1 - Immunization history:: Client reports having NOT received the Covid vaccine. - Social history:: Smoking status: Patient denies any tobacco usage or history of. Screenin:40 Abuse screen: Denies threats or abuse. Denies injuries from another. Nutritional cb5 screening: No deficits noted. Tuberculosis screening: No symptoms or risk factors identified. 12:48 Fall Risk Gait- Impaired (20 pts.). Mental Status- Oriented to own ability (0 pts). cb5 Assessment: 11:40 General: Appears in no apparent distress. comfortable, well groomed, well developed, cb5 Behavior is calm, cooperative, appropriate for age. Pain: Denies pain. Neuro: No deficits noted. Level of Consciousness is awake, alert, obeys commands, Oriented to person, place, time, situation, Appropriate for age Reports dizziness, dizziness off and on for a year. Cardiovascular: No deficits noted. Rhythm is sinus rhythm pt placed on conveyor monitor. Respiratory: No deficits noted. GI: No deficits noted. : No deficits noted. EENT: No deficits noted. Derm: No deficits noted. Musculoskeletal: No deficits noted. 14:00 Reassessment: Patient and/or family updated on plan of care and expected duration. Pain cb5 level reassessed. 14:50 Reassessment: Awaiting Troponin results prior to discharge. ss Vital Signs: 11:40 BP 155 / 70; Pulse 78; Resp 16; Pulse Ox 99% ; Pain 0/10; cb5 11:42 BP 142 / 88; Pulse 92; Resp 16; Temp 98.7; Pulse Ox 98% on R/A; Height 5 ft. 1 in. ll1 (154.94 cm); Pain 8/10; 14:00 BP 148 / 73; Pulse 82; Resp 16; Pulse Ox 99% ; Pain 0/10; cb5 16:00 BP 150 / 71; Pulse 82; Resp 16; Temp 98.4; Pulse Ox 98% ; Pain 0/10; cb5 NIH Stroke Scale Scores: 13:02 NIHSS Score: 0 [facility] ED Course: 11:28 Patient arrived in ED. kz 11:38 Arm band placed on Patient placed in an exam room, on a stretcher. ll1 11:40 Ysabel Duke, RN is Primary Nurse. cb5 11:40 No provider procedures requiring assistance completed. cb5 11:44 Triage completed. ll1 11:45 Patient has correct armband on for positive identification. Bed in low position. Call cb5 light in reach. Side rails up X2. 11:49 Omari Mac MD is Attending Physician. saira 13:01 Lipase Sent. cb5 13:01 Magnesium Sent. cb5 13:01 NT PRO-BNP Sent. cb5 13:02 Troponin HS Sent. cb5 13:02 PT-INR Sent. cb5 13:02 Magnesium Sent. cb5 13:02 LFT's Sent. cb5 13:02 CBC with Diff Sent. cb5 13:02 Basic Metabolic Panel Sent. cb5 13:18 NT PRO-BNP Sent. cb5 13:24 Lipase Sent. cb5 13:25 Initial lab(s) drawn, by me, sent to lab. Inserted saline lock: 22 gauge in right dh3 antecubital area, using aseptic technique. Blood collected. 13:30 Inserted saline lock: 22 gauge in left forearm, using aseptic technique. dh3 13:53 CT Head Brain wo Cont In Process Unspecified. EDMS 13:53 CT Abd/Pelvis - IV Contrast Only In Process Unspecified. EDMS 14:00 US Carotid Artery Bilateral In Process Unspecified. EDMS 14:31 XRAY Chest (1 view) In Process Unspecified. EDMS Administered Medications: 13:23 Drug: NS 0.9% 500 ml Route: IV; Rate: bolus; Site: right antecubital; cb5 16:20 Drug: Bactroban (mupirocin) Ointment 2 % 1 application Route: Topical; Site: affected cb5 area; Outcome: 14:39 Discharge ordered by . saira 16:18 Discharged to home with friend. watts 16:18 Condition: good 16:18 Discharge instructions given to patient. 16:27 Patient left the ED. cb5 NIH Stroke Scale - NIH Stroke Score Date: 11/02/2021 Time: 13:02 Total Score = 0 1a. Level of Consciousness (LOC) - 0(Alert) 1b. Level of Consciousness (LOC) (Month \T\ Age) - 0(Both) 1c. LOC Commands (Open \T\ Closes Eyes/Analytics Consultant) - 0(Both) 2. Best Gaze (Lateral Gaze Paresis) - 0(Normal) 3. Visual Field Loss - 0(No visual loss) 4. Facial Palsy - 0(Normal) 5a. Left Arm: Motor (10-second hold) - 0(No drift) 5b. Right Arm: Motor (10-second hold) - 0(No drift) 6a. Left Leg: Motor (5-second hold - always test supine) - 0(No drift) 6b. Right Leg: Motor (5-second hold - always test supine) - 0(No drift) 7. Limb Ataxia (finger/nose \T\ heel/rossi - test with eyes open) - 0(Absent) 8. Sensory Loss (pinprick arms/legs/face) - 0(Normal) 9. Best Language: Aphasia (description/naming/reading) - 0(No aphasia) 10. Dysarthria (speech clarity - read or repeat words) - 0(Normal) 11. Extinction and Inattention (visual/tactile/auditory/spatial/personal) - 0(No abnormality) Initials: [facility] Signatures: Dispatcher [employer] EDMS Omari Mac MD MD cha Smirch, Shelby, RN RN Guillermina Lennon 3 Maria Del Rosario Giles RN RN ll1 RadharJanene RN Ysabel Foster RN RN cb5 Yasmin Morales Corrections: (The following items were deleted from the chart) 16:26 15:27 Reassessment: Waiting on lab results before discharge, M.D and charge cb5 nurse aware.. cb5
--- NOTE | 2021-11-02 14:40 | EDPHYS ---
Physician Documentation [facility] Name: Amara Shipley Age: 86 yrs Sex: Female : 1935 Arrival Date: 11/02/2021 Time: 11:28 Bed 15 Private MD: ANNEMARIE Physician Omari Mac HPI: 11/02 13:00 This 86 yrs old Female presents to ER via Wheelchair with complaints of saira Dizziness, Confusion. 13:00 The patient presents with dizziness, generalized weakness. Onset: The symptoms/episode saira began/occurred 2 day(s) ago. Context: occurred at an office. Modifying factors: The symptoms are alleviated by nothing, the symptoms are aggravated by nothing. Associated signs and symptoms: The patient has no apparent associated signs or symptoms. Patient's baseline: Neuro: alert and fully oriented, Motor: no deficits. The patient has experienced similar episodes in the past, multiple times. Historical: - Allergies: 11:44 Codeine; ll1 11:44 Demerol; ll1 11:44 Celebrex; ll1 - PMHx: 11:44 High Cholesterol; Anxiety; Rheumatic arthritis; ibs; GERD; Dementia; CKD; Hypertension; ll1 - PSHx: 11:44 None; ll1 - Immunization history:: Client reports having NOT received the Covid vaccine. - Social history:: Smoking status: Patient denies any tobacco usage or history of. ROS: 13:02 Constitutional: Negative for fever, chills, and weight loss, Eyes: Negative for injury, saira pain, redness, and discharge, ENT: Negative for injury, pain, and discharge, Neck: Negative for injury, pain, and swelling, Cardiovascular: Negative for chest pain, palpitations, and edema, Respiratory: Negative for shortness of breath, cough, wheezing, and pleuritic chest pain, Back: Negative for injury and pain, : Negative for injury, bleeding, discharge, and swelling, MS/Extremity: Negative for injury and deformity, Skin: Negative for injury, rash, and discoloration, Psych: Negative for depression, anxiety, suicide ideation, homicidal ideation, and hallucinations, Allergy/Immunology: Negative for hives, rash, and allergies, Endocrine: Negative for neck swelling, polydipsia, polyuria, polyphagia, and marked weight changes, Hematologic/Lymphatic: Negative for swollen nodes, abnormal bleeding, and unusual bruising. 13:02 Respiratory: Positive for cough. 13:02 Abdomen/GI: Positive for abdominal pain, of the right upper quadrant and right lower quadrant. 13:02 Neuro: Positive for dizziness. Exam: 13:02 Constitutional: This is a well developed, well nourished patient who is awake, alert, saira and in no acute distress. Head/Face: Normocephalic, atraumatic. Eyes: Pupils equal round and reactive to light, extra-ocular motions intact. Lids and lashes normal. Conjunctiva and sclera are non-icteric and not injected. Cornea within normal limits. Periorbital areas with no swelling, redness, or edema. ENT: Nares patent. No nasal discharge, no septal abnormalities noted. Tympanic membranes are normal and external auditory canals are clear. Oropharynx with no redness, swelling, or masses, exudates, or evidence of obstruction, uvula midline. Mucous membranes moist. Neck: Trachea midline, no thyromegaly or masses palpated, and no cervical lymphadenopathy. Supple, full range of motion without nuchal rigidity, or vertebral point tenderness. No Meningismus. Chest/axilla: Normal chest wall appearance and motion. Nontender with no deformity. No lesions are appreciated. Cardiovascular: Regular rate and rhythm with a normal S1 and S2. No gallops, murmurs, or rubs. Normal PMI, no JVD. No pulse deficits. Respiratory: Lungs have equal breath sounds bilaterally, clear to auscultation and percussion. No rales, rhonchi or wheezes noted. No increased work of breathing, no retractions or nasal flaring. Back: No spinal tenderness. No costovertebral tenderness. Full range of motion. Female : Normal external genitalia. Skin: Warm, dry with normal turgor. Normal color with no rashes, no lesions, and no evidence of cellulitis. MS/ Extremity: Pulses equal, no cyanosis. Neurovascular intact. Full, normal range of motion. Neuro: Awake and alert, GCS 15, oriented to person, place, time, and situation. Cranial nerves II-XII grossly intact. Motor strength 5/5 in all extremities. Sensory grossly intact. Cerebellar exam normal. Normal gait. Psych: Awake, alert, with orientation to person, place and time. Behavior, mood, and affect are within normal limits. 13:02 Abdomen/GI: Inspection: abdomen appears normal, Bowel sounds: normal, in all quadrants, Palpation: mild abdominal tenderness, moderate abdominal tenderness, in the right upper quadrant and right lower quadrant, Liver: no appreciated palpable abnormalities, Hernia: not appreciated. 13:02 Musculoskeletal/extremity: ROM: intact in all extremities, full active range of motion, full passive range of motion, Pulses: Sensation intact. Compartment Syndrome exam of affected extremity: is normal. no pain, no numbness, no tingling, no sensation deficit, no palor, no weak pulses, DVT Exam: No signs of deep vein thrombosis. no pain, no swelling, no tenderness, negative Homans' sign noted on exam, no appreciated bluish discoloration, no erythema, no increased warmth. 13:06 ECG was reviewed by the Attending Physician. [facility] Vital Signs: 11:40 BP 155 / 70; Pulse 78; Resp 16; Pulse Ox 99% ; Pain 0/10; cb5 11:42 BP 142 / 88; Pulse 92; Resp 16; Temp 98.7; Pulse Ox 98% on R/A; Height 5 ft. 1 in. ll1 (154.94 cm); Pain 8/10; 14:00 BP 148 / 73; Pulse 82; Resp 16; Pulse Ox 99% ; Pain 0/10; cb5 16:00 BP 150 / 71; Pulse 82; Resp 16; Temp 98.4; Pulse Ox 98% ; Pain 0/10; cb5 NIH Stroke Scale Scores: 13:02 NIHSS Score: 0 saira MDM: 11:49 Patient medically screened. saira 13:04 Differential diagnosis: cardiac arrhythmia, CVA, generalized weakness, idiopathic saira dizziness, near-syncope. Differential diagnosis: acute coronary syndrome, diverticulitis, gastritis, Mesenteric ischemia or infarction, non-specific abd pain, pancreatitis, Perf. Duodenal Ulcer, Pyelonephritis, Ureterolithiasis, urinary tract infection. Data reviewed: vital signs, nurses notes, lab test result(s), EKG, radiologic studies, CT scan, plain films. Data interpreted: spray machine operator: rate is 92 beats/min, rhythm is regular, Pulse oximetry: on room air is 98 %. Test interpretation: by ED physician or midlevel provider: ECG, plain radiologic studies. Counseling: I had a detailed discussion with the patient and/or guardian regarding: the historical points, exam findings, and any diagnostic results supporting the discharge/admit diagnosis, lab results, radiology results. 11/02 13:00 Order name: Basic Metabolic Panel; Complete Time: 15:41 saira 11/02 13:00 Order name: CBC with Diff; Complete Time: 14:14 [facility] 11/02 13:00 Order name: LFT's; Complete Time: 15:41 [facility] 11/02 13:00 Order name: Magnesium; Complete Time: 15:41 [facility] 11/02 13:00 Order name: NT PRO-BNP; Complete Time: 15:41 [facility] 11/02 13:00 Order name: PT-INR; Complete Time: 14:14 [facility] 11/02 13:00 Order name: Troponin HS; Complete Time: 15:41 [facility] 11/02 13:00 Order name: XRAY Chest (1 view); Complete Time: 15:41 [facility] 11/02 13:00 Order name: Lipase; Complete Time: 15:41 [facility] 11/02 13:00 Order name: CT Head Brain wo Cont; Complete Time: 14:14 [facility] 11/02 13:00 Order name: Urine Culture [facility] 11/02 13:05 Order name: Lactate 11/02 13:05 Order name: Lactate; Complete Time: 15:41 EDMS 11/02 14:39 Order name: Urine Dipstick-Ancillary; Complete Time: 14:46 EDMS 11/02 13:00 Order name: EKG; Complete Time: 13:01 [facility] 11/02 13:00 Order name: Cardiac monitoring; Complete Time: 13:18 [facility] 11/02 13:00 Order name: EKG - Nurse/Tech; Complete Time: 13:17 [facility] 11/02 13:00 Order name: IV Saline Lock; Complete Time: 13:17 [facility] 11/02 13:00 Order name: Labs collected and sent; Complete Time: 13:24 [facility] 11/02 13:00 Order name: O2 Per Protocol; Complete Time: 13:18 [facility] 11/02 13:00 Order name: O2 Sat Monitoring; Complete Time: 13:18 [facility] 11/02 13:00 Order name: CT Abd/Pelvis - IV Contrast Only; Complete Time: 14:35 [facility] 11/02 13:00 Order name: US Carotid Artery Bilateral; Complete Time: 14:47 [facility] 11/02 14:36 Order name: Orthostatics saira EC:06 Rate is 81 beats/min. Rhythm is regular. QRS Hartley is Normal. DC interval is normal. QRS saira interval is normal. QT interval is normal. No Q waves. T waves are Normal. No ST changes noted. Clinical impression: NSR w/ Non-specific ST/T Changes and No evidence of ischemia. Interpreted by me. Reviewed by me. Administered Medications: 13:23 Drug: NS 0.9% 500 ml Route: IV; Rate: bolus; Site: right antecubital; cb5 16:20 Drug: Bactroban (mupirocin) Ointment 2 % 1 application Route: Topical; Site: affected cb5 area; Disposition Summary: 11/02/21 14:39 Discharge Ordered Location: Home saira Problem: new saira Symptoms: have improved saira Condition: Stable saira Diagnosis - Weakness saira - Abdominal pain, unspecified saira Followup: saira - With: Private Physician - When: 2 - 3 days - Reason: Recheck today's complaints, Continuance of care, Re-evaluation by your physician Discharge Instructions: - Discharge Summary Sheet saira - Abdominal Pain, Adult saira - Near-Syncope saira - Weakness saira - Fatigue saira - Weakness, [id number] saira - Aspirin and Your Heart saira Forms: - Medication Reconciliation Form saira - Thank You Letter saira - Antibiotic Education saira - Prescription Opioid Use saira Prescriptions: - dicyclomine 20 mg Oral Tablet - take 2 tablet by ORAL route 4 times per day; 28 tablet; Refills: 0, Product saira Selection Permitted NIH Stroke Scale - NIH Stroke Score Date: 11/02/2021 Time: 13:02 Total Score = 0 1a. Level of Consciousness (LOC) - 0(Alert) 1b. Level of Consciousness (LOC) (Month \T\ Age) - 0(Both) 1c. LOC Commands (Open \T\ Closes Eyes/Rotary Soil Stabilizer Operator) - 0(Both) 2. Best Gaze (Lateral Gaze Paresis) - 0(Normal) 3. Visual Field Loss - 0(No visual loss) 4. Facial Palsy - 0(Normal) 5a. Left Arm: Motor (10-second hold) - 0(No drift) 5b. Right Arm: Motor (10-second hold) - 0(No drift) 6a. Left Leg: Motor (5-second hold - always test supine) - 0(No drift) 6b. Right Leg: Motor (5-second hold - always test supine) - 0(No drift) 7. Limb Ataxia (finger/nose \T\ heel/rossi - test with eyes open) - 0(Absent) 8. Sensory Loss (pinprick arms/legs/face) - 0(Normal) 9. Best Language: Aphasia (description/naming/reading) - 0(No aphasia) 10. Dysarthria (speech clarity - read or repeat words) - 0(Normal) 11. Extinction and Inattention (visual/tactile/auditory/spatial/personal) - 0(No abnormality) Initials: saira Signatures: Dispatcher [employer] Omari Estrada MD MD cha Lewis, Lynsay, RN RN ll1 Ysabel Duke, RN RN cb5
--- NOTE | 2021-11-02 14:45 | RAD REPORT ---
EXAM DESCRIPTION: US - CP - 11/02/2021 2:02 pm CLINICAL HISTORY: DIZZINESS COMPARISON: Soft Tissue Neck W/Contr dated 06/20/2021 TECHNIQUE: Real-time sonographic evaluation of bilateral carotid and vertebral systems was performed . Hennessy scale and Doppler interrogation were performed with waveform tracing bilaterally. FINDINGS: Normal high resistance waveforms are noted in both external carotid arteries. The common c arotid arteries and internal carotid arteries show normal low resistance waveforms. Calcified and noncalcified plaquing changes are present in the bilateral carotid bulb and proximal IC A regions. Visually there is no significant degree of luminal narrowing. No dissection changes are id entifiable. Peak systolic and end diastolic velocity values and the ICA/CCA ratios are in the non-hem odynamically significant range. Vertebral arteries are not optimally visualized. Antegrade flow is suspected but not confirmed. Velocity values and ratios were recorded and are retained in the patient's imaging records. IMPRESSION: Bilateral ball and proximal ICA calcified noncalcified plaquing changes without visual e vidence for stenosis. Velocity values and ratios also indicate no significant degree of stenosis. Suboptimal vertebral artery visualization.
[2021-11-02 15:16] LABS: ALT/SGPT 25 U/L (12-78); AST/SGOT 22 U/L (15-37); Albumin 3.5 g/dL (3.4-5.0); Alkaline Phosphatase 70 U/L (45-117); Bilirubin Direct < 0.1 mg/dL (0-0.2); Bilirubin Total 0.4 mg/dL (0.2-1.0); Lipase 340 U/L (73-393); Magnesium 2.3 mg/dL (1.8-2.4); NT PRO-BNP 299 pg/mL (<450)
--- NOTE | 2021-11-02 15:19 | RAD REPORT ---
EXAM DESCRIPTION: RAD - Chest Single View - 11/02/2021 2:31 pm CLINICAL HISTORY: COUGH COMPARISON: Two view chest 05/23/2021 TECHNIQUE: AP portable chest image was obtained 11/02/2021 2:31 pm . FINDINGS: Lung volumes are low accentuating the baseline interstitial pattern. No peripheral mass or consolidation. Minimal interstitial edema or infiltrate could be masked. Significant failure or volu me overload are not suspected. Heart and vasculature are normal. No measurable pleural effusion and no pneumothorax. No acute bony abnormality seen. No acute aortic findings suspected. IMPRESSION: No peripheral mass or consolidation. No significant failure or volume overload. Low lung volume accentuates the interstitial pattern potentially masking mild edema or infiltrate.
[2021-11-02] MEDS ORDERED: MUPIROCIN 2% OINT 22GM TUBE TOP ONE (16:03)
[2021-11-02 16:56] VITALS: BP 150/71; TEMP 98.4; O2SAT 98
--- NOTE | 2021-11-03 11:34 | EKG ---
Test Date: 2021-11-02 Test Time: 12:46:01 Loan Assistant: RIDDHI MEASUREMENT RESULTS: Intervals: Rate: 81 RI: 138 QRSD: 68 QT: 398 QTc: 462 [place]: P: 70 RI: 138 QRS: 13 T: 49 INTERPRETIVE STATEMENTS: Normal sinus rhythm Cannot rule out Anterior infarct, age undetermined Abnormal ECG Compared to ECG 09/24/2019 14:48:01 Myocardial infarct finding now present Sinus tachycardia no longer present ST (T wave) deviation no longer present Electronically Signed On 11-03-21 11:29:22 UNLOAD ASSOCIATE by Armaan Anne
== END 2021-11-02 16:27 | disposition home or self-care (01) ==
LOC: ER 11:27
DX: R53.1 Weakness (principal); R10.9 Unspecified abdominal pain
CPT/HCPCS: 93005; 87088; 85025; 87086; 80048; 36415; 83735; 85610; 82565; 80076; 83605; 81003; 84484; 83690; 83880; 70450; 74177; 71045; 93880; 99284; Q9967; J7030